=== PATIENT | male | born 1995 | race Caucasian/White ===

== ENCOUNTER 2021-07-02 13:30 | Inpatient (IN) | payer OTHER, SELFPAY ==
[2021-07-02] VITALS (20 sets, daily range): BP systolic 114–154; BP diastolic 57–91; PULSE 77–120; RESP 12–53; TEMP 36.4–37.7; O2SAT 86–98; BMI 52.4; BMI 51.7
--- NOTE | 2021-07-02 14:07 | CT_ITS ---
STUDY: CTA CHEST REASON FOR EXAM: Male, 25 years old. Hypoxic respiratory failure RADIATION DOSAGE (If Supplied By Facility): CTDIvol = ( 13.85 ) mGy, DLP = ( 429.33 ) mGycm TECHNIQUE: The examination was performed with the intravenous administration of IV 100mL Isovue-370. Post-processing of the angiographic images was performed, with multiplanar reformation and 3D reconstruction. Individualized dose optimization techniques were used for this CT. COMPARISON: X-ray earlier today FINDINGS: Normal enhancement of the main pulmonary artery and right and left pulmonary arteries. Normal enhancement of the bilateral peripheral pulmonary arteries. There is no demonstrated pulmonary embolism. Normal thoracic aorta and visualized great vessels. There is no demonstrated aortic dissection. Normal heart and pericardium. Normal mediastinum. Normal hilar regions. Normal visualized trachea and bronchi. The lungs are well expanded. Bilateral patchy groundglass and alveolar densities consistent with bilateral pneumonia. Normal pleura. Normal chest wall structures. Normal osseous structures. Normal visualized upper abdomen. CT/CTA Chest W/WO Contrast IMPRESSION: 1. No CT evidence of pulmonary embolism. 2. Bilateral pneumonia and pneumonitis. Commonly reported imaging features of Covid 19 pneumonia are present. Other processes such as influenza pneumonia and organizing pneumonia as can be seen in drug toxicity and connective tissue disease can cause a similar imaging pattern. Electronically Signed: Kvng Perera MD at 16:58 EST Tel , Service support ,
--- NOTE | 2021-07-02 14:07 | EKG12_ITS ---
Test Reason : SOB, +COVID Blood Pressure : / mmHG Vent. Rate : 104 BPM Atrial Rate : 104 BPM P-R Int : 138 ms QRS Dur : 092 ms QT Int : 306 ms P-R-T Axes : 043 -11 029 degrees QTc Int : 402 ms Sinus tachycardia Otherwise normal ECG Confirmed by MAGGIE NORRIS, JEREMI ([id number]), business editor YFN DE OLIVEIRA ([id number]) on 07/06/2021 10:28:20 AM Referred By: HANNAH Confirmed By:JEREMI SERRANO MD
--- NOTE | 2021-07-02 14:45 | NURSING ---
NO OLD EKGS
[2021-07-02] MEDS: dexAMETHasone 10 MG/ML Vial 6 MG IV (15:03)
[2021-07-02 15:08] LABS: Absolute Lymphocyte Count 0.55 X10^3/uL (0.83-4.51); Absolute Neutrophil Count 7.5 X10^3/uL (2.0-7.7); Basophil# 0.01 X10^3/uL; Basophil% 0.1 % (0-1); Hematocrit 46.2 % (40-54); Hemoglobin 15.6 g/dL (13.0-16.5); Lymphocyte # 0.55 X10^3/ul (0.83-4.51); Lymphocyte % 6.5 % (19-41); Mean Corp Hgb Conc 33.8 g/dL (32-36); Mean Corpuscular Hgb 28.9 pg (27.0-32.0); Mean Corpuscular Volume 85.7 fL (80-94); Mean Platelet Vol. 11.5 fl (6.2-12.0); Monocyte# 0.35 X10^3/uL; Monocyte% 4.2 % (0-10); NRBC Flagged by Analyzer 0 % (0-5); Neutrophil # 7.49 X10^3/uL (2.7-7.7); POSITIVE DIFFERENTIAL YES; Platelet Count 150 K/mm3 (150-450); RBC Distribution Width CV 13.3 % (11.6-14.6); RBC Distribution Width SD 41.6 fl (35.1-43.9); Red Blood Count 5.39 M/mm3 (4.6-6.2); White Blood Count 8.4 K/mm3 (4.4-11.0)
[2021-07-02 15:20] LABS: International Normalized Ratio 1.1; Prothrombin Time (Protime)PT. 13.2 SECONDS (11.7-14.9)
[2021-07-02 15:21] LABS: Partial Thromboplast Time 25.5 Seconds (24.1-36.2)
[2021-07-02 15:27] LABS: Differential Indicated SCAN CRITERIA MET
[2021-07-02 15:34] LABS: Anisocytosis RARE; Platelet Estimate ADEQUATE (ADEQ); Red Cell Morphology N CHROM NORMAL (NORM C&C)
[2021-07-02 15:52] LABS: Lactic Acid 1.4 mmol/L (0.4-1.9)
[2021-07-02 16:04] LABS: ALB/GLOB Ratio 0.6 RATIO (0.9-2.4); AST(SGOT) 19 U/L (15-37); Alanine Aminotransfer ALT/SGPT 45 U/L (16-61); Albumin, Serum 2.8 g/dL (3.2-5.0); Alkaline Phosphatase 67 U/L (45-117); Anion Gap 8 (5-15); BUN 15 mg/dL (7-18); BUN/Creat Ratio 15.5 RATIO (10-20); Calcium,Total 8.7 mg/dL (8.5-10.1); Chloride 104 mmol/L (98-107); Creatinine, Serum 0.97 mg/dL (0.70-1.30); EST Glomerular Filtration Rate 98 mL/min (>60); Est Glom Filt Rate - Afr Amer 119 mL/min (>60); Estimated Creatinine Clearance 110.67 ml/min; Globulin 4.4 g/dL (2.2-4.2); Glucose 158 mg/dL (74-106); Potassium 4.2 mmol/L (3.5-5.1); Protein, Total 7.2 g/dL (6.4-8.2); Sodium Level 137 mmol/L (136-145); Troponin-I HS 4 pg/mL (3.0-78.0)
--- NOTE | 2021-07-02 16:20 | CPS ---
Put pt on BIPAP for transport to CT. when back in his room, he was very anxious, breathing in the low 50's. Pt said the mask made him anxious. R.T. switched him back to Airvo 60l @90% which he tolerates well.
--- NOTE | 2021-07-02 16:30 | RAD_ITS ---
STUDY: X-RAY CHEST REASON FOR EXAM: Male, 25 years old. dyspnea TECHNIQUE: Single AP portable view of the chest. COMPARISON: None. FINDINGS: Alveolar opacities in both lungs consistent with bilateral pneumonia. There is no demonstrated pleural abnormality. Normal size heart. Normal mediastinum and florin. Normal visualized pulmonary arteries. Normal visualized aortic arch and descending thoracic aorta. Normal visualized thoracic spine. Normal visualized ribs, clavicles, and shoulders. There is no demonstrated abnormality of the visualized soft tissue structures of the upper abdomen. RAD/Chest 1 View (Portable) IMPRESSION: Bilateral pneumonia. Electronically Signed: Kvng Perera MD at 16:44 EST Tel , Service support ,
--- NOTE | 2021-07-02 16:48 | ED.VIS.DYS ---
HPI History of Present Illness Chief Complaint: Shortness of Breath Narrative Narrative: 25-year-old male presenting with shortness of breath. He states he has been sick for about a week and a half. He states his dyspnea started yesterday. He has a history of asthma but has not been wheezing. He states that he is having trouble catching his breath. He is not complaining of chest pain. Patient states that he has no other medical problems other than asthma. He had a home COVID test which was positive. He came in today because his oxygen was reading low at home. [facility] Medical History Asthma Allergy/AdvReac Type Severity Reaction Status Date / Time No Known Allergies Allergy Verified 07/02/21 13:34 Family History (Updated 07/02/21 @ 17:[address] Cody Naidu DO) Other Asthma Social History (Updated 07/02/21 @ 17:[address] Cody Naidu DO) Smoking Status: Never smoker alcohol intake: never substance use type: does not use ROS ROS ED Constitutional Constitutional ED: Denies sweats or weight loss Eyes Eyes: Denies blurry vision or diplopia ENT ENT ED: Denies rhinorrhea Cardiovascular Cardiovascular: Reports racing heartbeat; Denies chest pain Respiratory/Chest Respiratory/Chest: Reports cough, dyspnea and dyspnea on exertion Gastrointestinal Gastrointestinal: Denies abdominal pain, nausea or vomiting Genitourinary Genitourinary ED: Denies dysuria or hematuria Musculoskeletal Musculoskeletal: Reports myalgias; Denies arthralgias or neck pain Integumentary Denies Abrasions or rash Neurologic Neurologic: Denies headache(s) or paresthesias EXAM Physical Exam Const Vital Signs: 07/02/21 13:32 07/02/21 14:38 07/02/21 14:53 Temperature 97.6 F L Temperature Source Temporal Pulse Rate 120 H 98 102 H Respiratory Rate 24 H 30 H Respiratory Effort Short of Breath Labored Accessory Muscle Use Respiratory Depth Shallow Respiratory Pattern Tachypnea Blood Pressure 154/91 H Blood Pressure Mean 112 Pulse Ox 87 90 Oxygen Delivery Method Room Air High Flow High Flow Oxygen Flow Rate (L/min) 13 Fraction of Inspired Oxygen (FIO2) 07/02/21 15:10 07/02/21 15:15 07/02/21 15:44 Temperature 99.9 F H Temperature Source Oral Pulse Rate 118 H Respiratory Rate 32 H Respiratory Effort Respiratory Depth Respiratory Pattern Tachypnea Blood Pressure Blood Pressure Mean Pulse Ox 86 94 Oxygen Delivery Method High Flow Oxygen Flow Rate (L/min) 15 Fraction of Inspired Oxygen (FIO2) 92 07/02/21 16:19 07/02/21 16:20 07/02/21 16:57 Temperature Temperature Source Pulse Rate 110 H 116 H 118 H Respiratory Rate 25 H 53 H 44 H Respiratory Effort Respiratory Depth Respiratory Pattern Tachypnea Tachypnea Blood Pressure 138/82 H Blood Pressure Mean 100 Pulse Ox 91 98 92 Oxygen Delivery Method Bi-pap Oxygen Flow Rate (L/min) Fraction of Inspired Oxygen (FIO2) 100 90 Positive well nourished Constitutional Narrative: Tachypneic and tachycardic. General Appearance ED: Negative for pallor HEENT Reports dry mucous membranes atraumatic Mouth ED: Yes dry mucous membranes Mouth: dry mucous membranes Eyes PERRL and EOMs intact bilaterally Resp Resp Narrative: Tachypneic Auscultation: Negative for rales, rhonchi or wheezes Cardio regular rhythm Rate: tachycardic Extremity normal to inspection General Extremety ED: Negative for edema or tenderness General Extremity: Negative for edema Neuro oriented x3 and CN's II-XII intact bilaterally Sensorium / Orientation: alert Psych mental status grossly normal Skin General Skin Exam: Negative for jaundice or pallor MDM MDM MDM Narrative Medical decision making narrative: Patient presenting tachypneic and tachycardic. He has a positive COVID test. Based on patient's vital sepsis work-up was initiated. He had EKG interpreted by myself as sinus tachycardia at a rate of 104 bpm without sign of ischemic change. Chest x-ray shows bilateral infiltrates on my interpretation and the radiologist does agree. High-sensitivity troponin is 4. CBC shows his white blood cell count is 8.4. Hemoglobin normal 18.6. Platelets 150. Patient is noted to be lymphopenic. Coagulation studies are normal. Lactic acid 1.4. LFTs are normal. Patient initially was on 4 L nasal cannula and was on air Vo he had trialed on BiPAP however he did poorly on this and became more tachypneic. He switched back to Airvo and appears stable. I did obtain a CTA of the chest which does not show any pulmonary embolism however there is diffuse pneumonitis bilaterally. Patient was given dexamethasone. If also gave him some IV fluids. Patient was discussed with the hospitalist for admission. Impression: 1. COVID-19 pneumonitis 2. Hypoxic respiratory failure Lab Data Attestation: I reviewed the patient's lab results. Labs: Laboratory Results - last 24 hr 07/02/21 07/02/21 07/02/21 14:29 14:29 14:29 WBC 8.4 RBC 5.39 Hgb 15.6 Hct 46.2 MCV 85.7 MCH 28.9 MCHC 33.8 RDW Std Deviation 41.6 RDW Coeff of Ying 13.3 Plt Count 150 MPV 11.5 Immature Gran % (Auto) 0.200 Neut % (Auto) 89.0 H Lymph % (Auto) 6.5 L Esmeralda % (Auto) 4.2 Eos % (Auto) 0.0 Baso % (Auto) 0.1 Absolute Neuts (auto) 7.5 Absolute Lymphs (auto) 0.55 L Nucleated RBC % 0 Differential Comment SEE COMMENT Platelet Estimate ADEQUATE RBC Morphology N CHROM Anisocytosis RARE PT 13.2 INR 1.1 APTT 25.5 Sodium Cancelled Potassium Cancelled Chloride Cancelled Carbon Dioxide Cancelled Anion Gap Cancelled BUN Cancelled Creatinine Cancelled Estim Creat Clear Calc Cancelled Est GFR (MDRD) Af Amer Cancelled Est GFR (MDRD) Non-Af Cancelled BUN/Creatinine Ratio Cancelled Glucose Cancelled Lactic Acid Calcium Cancelled Total Bilirubin Cancelled AST Cancelled ALT Cancelled Alkaline Phosphatase Cancelled Troponin I High Sens Cancelled Total Protein Cancelled Albumin Cancelled Globulin Cancelled Albumin/Globulin Ratio Cancelled 07/02/21 07/02/21 14:29 15:30 WBC RBC Hgb Hct MCV MCH MCHC RDW Std Deviation RDW Coeff of Ying Plt Count MPV Immature Gran % (Auto) Neut % (Auto) Lymph % (Auto) Esmeralda % (Auto) Eos % (Auto) Baso % (Auto) Absolute Neuts (auto) Absolute Lymphs (auto) Nucleated RBC % Differential Comment Platelet Estimate RBC Morphology Anisocytosis PT INR APTT Sodium 137 Potassium 4.2 Chloride 104 Carbon Dioxide 25.0 Anion Gap 8 BUN 15 Creatinine 0.97 Estim Creat Clear Calc 110.67 Est GFR (MDRD) Af Amer 119 Est GFR (MDRD) Non-Af 98 BUN/Creatinine Ratio 15.5 Glucose 158 H Lactic Acid 1.4 Calcium 8.7 Total Bilirubin 0.50 AST 19 ALT 45 Alkaline Phosphatase 67 Troponin I High Sens 4 Total Protein 7.2 Albumin 2.8 L Globulin 4.4 H Albumin/Globulin Ratio 0.6 L Radiography Diagnostic Testing: Clinical Impression(s) from Imaging Studies Chest CTA 07/02/21 14:07 IMPRESSION: 1. No CT evidence of pulmonary embolism. 2. Bilateral pneumonia and pneumonitis. Commonly reported imaging features of Covid 19 pneumonia are present. Other processes such as influenza pneumonia and organizing pneumonia as can be seen in drug toxicity and connective tissue disease can cause a similar imaging pattern. Electronically Signed: Kvng Perera MD at 16:58 EST Tel , Service support , Chest X-Ray 07/02/21 16:30 IMPRESSION: Bilateral pneumonia. Electronically Signed: Kvng Perera MD at 16:44 EST Tel , Service support , Discharge Plan Triage Chief Complaint: Shortness of Breath ED Provider: Pablo Madera Dx/Rx/DC Orders Primary Care Provider: Care Physician,No Primary
--- NOTE | 2021-07-02 17:19 | NURSING ---
SAMRA NOEL 17 PNEUMONITIS, HYPOXIC RESP FAILURE
--- NOTE | 2021-07-02 17:24 | HP.PCM.HOS_ITS ---
HPI - General General Chief Complaint: shortness of breath HPI Narrative MAHSA PARSON, is a 25 M who presents with illness that began on June 23. Is gradually gotten more short of breath at this time. He presented to the emergency room at 87%. Was on high flow and was still hypoxic and put on BiPAP which she did not tolerate and then put on air Vo where his pulse ox has been around 90%. Patient was positive for COVID-19. He is unvaccinated. He has coughing with some productive yellow phlegm. [facility] Medical History Asthma Allergy/AdvReac Type Severity Reaction Status Date / Time No Known Allergies Allergy Verified 07/02/21 13:34 Family History (Updated 07/02/21 @ 17:[address] Cody Naidu DO) Other Asthma Social History (Updated 07/02/21 @ 17:[address] Cody Naidu DO) Smoking Status: Never smoker alcohol intake: never substance use type: does not use ROS ROS Narrative All review of systems were negative except as mentioned above in the history of present illness and the other review of systems. Vital Signs Vital Signs Vital Signs: 07/02/21 13:32 07/02/21 14:38 07/02/21 14:53 Temperature 36.4 C L Temperature Source Temporal Pulse Rate 120 H 98 102 H Respiratory Rate 24 H 30 H Respiratory Effort Short of Breath Labored Accessory Muscle Use Respiratory Depth Shallow Respiratory Pattern Tachypnea Blood Pressure 154/91 H Blood Pressure Mean 112 Pulse Ox 87 90 Oxygen Delivery Method Room Air High Flow High Flow Oxygen Flow Rate (L/min) 13 Fraction of Inspired Oxygen (FIO2) 07/02/21 15:10 07/02/21 15:15 07/02/21 15:44 Temperature 37.7 C H Temperature Source Oral Pulse Rate 118 H Respiratory Rate 32 H Respiratory Effort Respiratory Depth Respiratory Pattern Tachypnea Blood Pressure Blood Pressure Mean Pulse Ox 86 94 Oxygen Delivery Method High Flow Oxygen Flow Rate (L/min) 15 Fraction of Inspired Oxygen (FIO2) 92 07/02/21 16:19 07/02/21 16:20 07/02/21 16:57 Temperature Temperature Source Pulse Rate 110 H 118 H Respiratory Rate 25 H 44 H Respiratory Effort Respiratory Depth Respiratory Pattern Tachypnea Blood Pressure 138/82 H Blood Pressure Mean 100 Pulse Ox 91 92 Oxygen Delivery Method Bi-pap Oxygen Flow Rate (L/min) Fraction of Inspired Oxygen (FIO2) 100 90 Weight Weight: 156.489 kg Body Mass Index (BMI) 52.4 Physical Exam Const alert Constitutional Narrative: Awake on air Vo. No respiratory distress. No conversational dyspnea. General Appearance: cooperative HEENT normocephalic and head/scalp atraumatic Eyes Eyes Narrative: No icterus Neck no lymphadenopathy Neck Narrative: No thyromegaly Resp normal respiratory effort, no retractions, no use of accessory muscles and clear to auscultation bilaterally Cardio regular rate, regular rhythm, S1 normal heart sound and S2 normal heart sound GI normal to inspection, nondistended, normoactive bowel sounds, soft to palpation, non-tender and non-distended Extremity normal to inspection and no clubbing, cyanosis or edema Skin no rashes or lesions noted Neuro Sensorium / Orientation: awake and alert Psych Mood & Affect: anxious Results Lab / Micro Data Attestation: I reviewed the patient's lab results. Result Diagrams: 07/02/21 14:29 07/02/21 15:30 Labs: Laboratory Results - last 24 hr 07/02/21 14:29: WBC 8.4, RBC 5.39, Hgb 15.6, Hct 46.2, MCV 85.7, MCH 28.9, MCHC 33.8, RDW Std Deviation 41.6, RDW Coeff of Ying 13.3, Plt Count 150, MPV 11.5, Immature Gran % (Auto) 0.200, Neut % (Auto) 89.0 H, Lymph % (Auto) 6.5 L, Castro % (Auto) 4.2, Eos % (Auto) 0.0, Baso % (Auto) 0.1, Absolute Neuts (auto) 7.5, Absolute Lymphs (auto) 0.55 L, Nucleated RBC % 0, Differential Comment SEE COMMENT, Platelet Estimate ADEQUATE, RBC Morphology N CHROM, Anisocytosis RARE 07/02/21 14:29: PT 13.2, INR 1.1, APTT 25.5 07/02/21 14:29: Sodium Cancelled, Potassium Cancelled, Chloride Cancelled, Carbon Dioxide Cancelled, Anion Gap Cancelled, BUN Cancelled, Creatinine Cancelled, Estim Creat Clear Calc Cancelled, Est GFR (MDRD) Af Amer Cancelled, Est GFR (MDRD) Non-Af Cancelled, BUN/Creatinine Ratio Cancelled, Glucose Cancelled, Calcium Cancelled, Total Bilirubin Cancelled, AST Cancelled, ALT Cancelled, Alkaline Phosphatase Cancelled, Troponin I High Sens Cancelled, Total Protein Cancelled, Albumin Cancelled, Globulin Cancelled, Albumin/Globulin Ratio Cancelled 07/02/21 14:29: Lactic Acid 1.4 07/02/21 15:30: Sodium 137, Potassium 4.2, Chloride 104, Carbon Dioxide 25.0, Anion Gap 8, BUN 15, Creatinine 0.97, Estim Creat Clear Calc 110.67, Est GFR (MDRD) Af Amer 119, Est GFR (MDRD) Non-Af 98, BUN/Creatinine Ratio 15.5, Glucose 158 H, Calcium 8.7, Total Bilirubin 0.50, AST 19, ALT 45, Alkaline Phosphatase 67, Troponin I High Sens 4, Total Protein 7.2, Albumin 2.8 L, Globulin 4.4 H, Albumin/Globulin Ratio 0.6 L Micro: Microbiology 07/02/21 15:05 Nasal Secretion SARS-CoV-2 Antigen (Rapid) - Final SARS-CoV-2 (COVID 19) Radiology Impression Chest CTA 07/02/21 14:07 IMPRESSION: 1. No CT evidence of pulmonary embolism. 2. Bilateral pneumonia and pneumonitis. Commonly reported imaging features of Covid 19 pneumonia are present. Other processes such as influenza pneumonia and organizing pneumonia as can be seen in drug toxicity and connective tissue disease can cause a similar imaging pattern. Electronically Signed: Kvng Perera MD at 16:58 EST Tel , Service support , Chest X-Ray 07/02/21 16:30 IMPRESSION: Bilateral pneumonia. Electronically Signed: Kvng Perera MD at 16:44 EST Tel , Service support , Assessment & Plan Assessment/Plan (1) Acute respiratory failure with hypoxia: (2) COVID-19: (3) Morbid obesity: PLAN: 1. Acute hypoxic respiratory failure Secondary to COVID-19 Clinically not in CHF We will check for bacterial pneumonia Patient on air Vo but anticipate patient will require BiPAP Patient attempted BiPAP with did not tolerate it. I expressed with patient directly that BiPAP would be the next step before he is intubated if it does come to that. He seemed agreeable to attempting again if it becomes necessary. Pulmonary toilet Consult pulmonary as I very concerned that he may wind up being placed on a ventilator in the coming days. Explained to them both that it is unclear that his course will improve or get worse. Informed him that we will evaluate and see how he does day-to-day. I did express to them both that I am very concerned that he could get worse despite the treatment. Strongly encourage patient take active involvement in regards to his care in regards to using senna spirometer chest physiotherapy and prone positioning. 2. Acute COVID-19 pneumonia Onset was June 23 He is unvaccinated Dexamethasone and remdesivir Consult infectious disease to see if he would be a candidate for baricitinib 3. Hyperglycemia Unclear if patient has underlying diabetes but I do expect his blood sugars to be elevated with the steroids Check an A1c 4. Morbid obesity BMI 52.5 Explained to the patient and his father that is a risk factor for severe COVID- 19 and respiratory failure Patient will need further outpatient follow-up 6. VTE prophylaxis with enoxaparin 7. CODE STATUS: Addressed with the patient. He is full code. He wishes to be intubated if becomes life or . 8. Prognosis: Guarded Charges/Coding Visit Charges Inpatient E&M: 10242 Init Hosp L3
--- NOTE | 2021-07-02 19:22 | PCS.PANDOC ---
PANDEMIC DOCUMENTATION INITIATED: Date: 07/02/2021 Time: 1921
[2021-07-02] MEDS: 0.9% Saline Lock 10 ML Syringe IV (20:53)
[2021-07-02] MEDS: Enoxaparin 40 MG/0.4 ML Syringe SC (20:53)
[2021-07-02] MEDS: Acetaminophen 325 MG Tablet 650 MG PO (20:54)
[2021-07-02 23:43] LABS: Bacteria 0 SEEN /hpf (None Seen); Mucous, Urine 0 SEEN /hpf (<or=2+); Red Blood Cells-Urine 0 SEEN /hpf (0-5); Squamous Epithelial Cells - UA 0 SEEN /hpf (0-5); White Blood Cells 0 SEEN /hpf (0-5)
[2021-07-02 23:45] LABS: Glucose, Dipstick Normal (Normal); Ketone-Dipstick 15 mg/dl (Negative); Leukocyte Esterase-Dipstick Negative /ul (Negative); Nitrite-Dipstick Negative (Negative); Occult Blood-Urine Negative /ul (Negative); Protein-Dipstick 30 mg/dl (Negative); Specific Gravity, Urine 1.015 (1.002-1.030); Urine Bilirubin Dipstick Negative (Negative); Urine Urobilinogen Normal (Normal)
[2021-07-03] VITALS (15 sets, daily range): BP systolic 112–144; BP diastolic 58–74; PULSE 60–93; RESP 14–45; TEMP 36.8–37.5; O2SAT 90–97
[2021-07-03] LABS: Color, Urine Yellow (Yellow); Urine Clarity Clear (Clear)
[2021-07-03 02:21] LABS: Bedside Glucose 177 mg/dL (70-110)
[2021-07-03] MEDS: Ondansetron 4 MG/2 ML Vial IV (03:06)
[2021-07-03] MEDS: 0.9% Saline Lock 10 ML Syringe IV ×2 (03:07→08:35)
[2021-07-03] MEDS: Acetaminophen 325 MG Tablet 650 MG PO ×2 (06:37→14:20)
[2021-07-03 07:01] LABS: Bedside Glucose 143 mg/dL (70-110)
[2021-07-03 07:04] LABS: Hematocrit 45.8 % (40-54); Hemoglobin 15.4 g/dL (13.0-16.5); Mean Corp Hgb Conc 33.6 g/dL (32-36); Mean Corpuscular Hgb 28.8 pg (27.0-32.0); Mean Corpuscular Volume 85.6 fL (80-94); Mean Platelet Vol. 10.3 fl (6.2-12.0); Platelet Count 158 K/mm3 (150-450); RBC Distribution Width CV 13.1 % (11.6-14.6); RBC Distribution Width SD 41.2 fl (35.1-43.9); Red Blood Count 5.35 M/mm3 (4.6-6.2); White Blood Count 8.1 K/mm3 (4.4-11.0)
[2021-07-03 07:46] LABS: ALB/GLOB Ratio 0.6 RATIO (0.9-2.4); AST(SGOT) 18 U/L (15-37); Alanine Aminotransfer ALT/SGPT 40 U/L (16-61); Albumin, Serum 2.7 g/dL (3.2-5.0); Alkaline Phosphatase 63 U/L (45-117); Anion Gap 7 (5-15); BUN 17 mg/dL (7-18); BUN/Creat Ratio 21.3 RATIO (10-20); Calcium,Total 8.9 mg/dL (8.5-10.1); Chloride 107 mmol/L (98-107); EST Glomerular Filtration Rate 123 mL/min (>60); Est Glom Filt Rate - Afr Amer 149 mL/min (>60); Estimated Creatinine Clearance 134.19 ml/min; Globulin 4.5 g/dL (2.2-4.2); Glucose 130 mg/dL (74-106); Potassium 3.9 mmol/L (3.5-5.1); Protein, Total 7.2 g/dL (6.4-8.2); Sodium Level 138 mmol/L (136-145)
[2021-07-03 07:59] LABS: Hemoglobin A1c 5.8 % (3.8-5.6)
[2021-07-03] MEDS: Enoxaparin 40 MG/0.4 ML Syringe SC ×2 (08:35→22:52)
[2021-07-03] MEDS: dexAMETHasone 10 MG/ML Vial 6 MG IV (08:36)
[2021-07-03] MEDS: Insulin Lispro 100 UNIT/ML INSULN.PEN SC ×2 (11:17→16:02)
--- NOTE | 2021-07-03 11:32 | CON.PCM.CC_ITS ---
Assessment & Plan Assessment/Plan (1) Acute respiratory failure with hypoxia: (2) COVID-19: (3) Morbid obesity: PLAN: RECOMMENDATIONS: 1. Continue Airvo during the day, but must use BiPAP with sleep 2. Agree with Decadron (07/12/2021), Remdesivir (07/06/2021). 3. Patient likely good candidate for baricitinib. Await ID 4. Monitor for complications of therapy with daily labs 5. Encourage prone position, Acapella and incentive spirometer as tolerated 6. Initiate bronchodilators as needed IMPRESSIONS: 1. Acute hypoxic respiratory failure secondary to COVID-19 Patient is appropriately on Decadron and Remdesivir therapy. Patient is likely a good candidate for baricitinib given elevated CRP, but infectious disease has been consulted, so will defer to them. Patient does have a history of asthma. We will add bronchodilators. Patient is already on steroids. Wean supplemental oxygen as tolerated. Okay to use Airvo during the day if able to maintain saturations, but BiPAP would be best for sleep as patient does have a high probability of obstructive sleep apnea and will likely not tolerate hypoventilation at this time. Patient does not have an elevated bicarbonate to suggest CO2 retention at baseline. Patient appears to be doing okay at this time, but cannot exclude progression to intubation 2. Morbid obesity/asthma/probable MELONY Complicates care, management, recovery and prognosis. Will initiate bronchodilators. Patient should be on BiPAP with sleep to minimize atelectasis and derecruitment. Confirmed with the patient that he is a full code. HPI Consult Data Date of Consult: 07/03/21 HPI Narrative HPI Narrative: MAHSA PARSON is a 25 M, with past medical history listed below, who presents to [facility] on 07/02/2021 secondary to progressive shortness of breath. Patient states that he started to have body aches, headache and sore throat approximately 10 days ago. Patient has had progressive dyspnea to the point that he is he requiring albuterol 3 times a day. Patient denied any chest pain, nausea or vomiting. Patient had taken a home COVID test which was positive and came to the ER on the day of presentation secondary to low saturations on a pulse ox at home. In the ER, patient was afebrile, but tachycardic at 120 bpm, hypertensive and saturating 87% on room air. The patient was placed on progressive amounts of supplemental oxygen until he required BiPAP therapy. Patient did have tachypnea as high as 53 breaths/min. Laboratory work-up showed a relatively normal CBC, coagulation studies and chemistries. Lactate was 1.4. Liver enzymes were within normal limits. Chest x-ray showed bilateral infiltrates and a CTA of the chest showed no acute PE, but significant groundglass opacities bilaterally. The patient was placed on Airvo, given Decadron and admitted to the floor for further evaluation. Since being admitted, patient feels subjectively slightly improved compared to previous. Patient is reporting body aches and shortness of breath with minimal exertion. Patient has not had any epistaxis, nausea or vomiting. Patient believes that his conversational ability is a little bit better than when he came in. Patient reports a long history of asthma. Patient has not seen a special forces engineer sergeant previously, but does use albuterol as needed. Patient estimates that he needs prednisone intermittently to help with bronchitis. Patient has never been on a maintenance inhaler. Patient is not aware of ever having a pulmonary function test. 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 Patient has never been a smoker, drinker or used other illicit drugs. Patient states he was not vaccinated because he thought that he was too young to have any serious complications. The patient denies a history of obstructive sleep apnea, but is never been tested. Review of systems otherwise negative from a constitutional, HEENT, respiratory, cardiovascular, GI, genitourinary, musculoskeletal, skin, neurologic, psychiatric and hematologic system unless stated above. [facility] Medical History Asthma Obesity Home Medications NK 07/02/21 [History Last Taken Unknown] Allergy/AdvReac Type Severity Reaction Status Date / Time cat dander AdvReac Swelling Verified 07/02/21 19:42 Family History Other Asthma Social History Smoking Status: Never smoker alcohol intake: never substance use type: does not use ROS ROS Narrative See HPI Physical Exam Const alert and oriented x3 Constitutional Narrative: Awake on Airvo. No respiratory distress. Mild conversational dyspnea. General Appearance: cooperative Nutritional Appearance: morbidly obese HEENT normocephalic and head/scalp atraumatic Eyes Eyes Narrative: No icterus Neck no lymphadenopathy Neck Narrative: No thyromegaly. [place] hump noted. Chest inspection of chest normal Chest: symmetrical chest wall rise; Negative for crepitus Resp no retractions and no use of accessory muscles Effort and Inspection: tachypneic Auscultation: diminished lung sounds; Negative for rales, rhonchi or wheezes Cardio regular rate, regular rhythm, S1 normal heart sound and S2 normal heart sound GI normal to inspection, nondistended, normoactive bowel sounds, soft to palpation, non-tender and non-distended Extremity normal to inspection and no clubbing, cyanosis or edema Skin no rashes or lesions noted Neuro Sensorium / Orientation: awake and alert Psych Mood & Affect: anxious Lab / Micro Data Result Diagrams: 07/03/21 06:20 07/03/21 06:20 Labs: Laboratory Results - last 24 hr 07/02/21 14:29: WBC 8.4, RBC 5.39, Hgb 15.6, Hct 46.2, MCV 85.7, MCH 28.9, MCHC 33.8, RDW Std Deviation 41.6, RDW Coeff of Ying 13.3, Plt Count 150, MPV 11.5, Immature Gran % (Auto) 0.200, Neut % (Auto) 89.0 H, Lymph % (Auto) 6.5 L, [place] % (Auto) 4.2, Eos % (Auto) 0.0, Baso % (Auto) 0.1, Absolute Neuts (auto) 7.5, Abs olute Lymphs (auto) 0.55 L, Nucleated RBC % 0, Differential Comment SEE COMMENT, Platelet Estimate ADEQUATE, RBC Morphology N CHROM, Anisocytosis RARE 07/02/21 14:29: PT 13.2, INR 1.1, APTT 25.5 07/02/21 14:29: Sodium Cancelled, Potassium Cancelled, Chloride Cancelled, Carbon Dioxide Cancelled, Anion Gap Cancelled, BUN Cancelled, Creatinine Cancelled, Estim Creat Clear Calc Cancelled, Est GFR (MDRD) Af Amer Cancelled, Est GFR (MDRD) Non-Af Cancelled, BUN/Creatinine Ratio Cancelled, Glucose Cancelled, Calcium Cancelled, Total Bilirubin Cancelled, AST Cancelled, ALT Cancelled, Alkaline Phosphatase Cancelled, Troponin I High Sens Cancelled, Total Protein Cancelled, Albumin Cancelled, Globulin Cancelled, Albumin/Globulin Ratio Cancelled 07/02/21 14:29: Lactic Acid 1.4 07/02/21 15:30: Sodium 137, Potassium 4.2, Chloride 104, Carbon Dioxide 25.0, Anion Gap 8, BUN 15, Creatinine 0.97, Estim Creat Clear Calc 110.67, Est GFR (MDRD) Af Amer 119, Est GFR (MDRD) Non-Af 98, BUN/Creatinine Ratio 15.5, Glucose 158 H, Calcium 8.7, Total Bilirubin 0.50, AST 19, ALT 45, Alkaline Phosphatase 67, Troponin I High Sens 4, Total Protein 7.2, Albumin 2.8 L, Globulin 4.4 H, Albumin/Globulin Ratio 0.6 L 07/02/21 20:50: POC Glucose 177 H 07/02/21 23:33: Urine Color Yellow, Urine Clarity Clear, Urine pH 5.0, Ur Specific [place] 1.015, Urine Protein 30 H, Urine Glucose (UA) Normal, Urine Ketones 15 H, Urine Occult Blood Negative, Urine Nitrite Negative, Urine Bilirubin Negative, Urine Urobilinogen Normal, Ur Leukocyte Esterase Negative, Urine RBC 0 SEEN, Urine WBC 0 SEEN, Ur Squamous Epith Cells 0 SEEN, Urine Bacteria 0 SEEN, Urine Mucus 0 SEEN 07/03/21 06:20: WBC 8.1, RBC 5.35, Hgb 15.4, Hct 45.8, MCV 85.6, MCH 28.8, MCHC 33.6, RDW Std Deviation 41.2, RDW Coeff of Ying 13.1, Plt Count 158, MPV 10.3 07/03/21 06:20: Sodium 138, Potassium 3.9, Chloride 107, Carbon Dioxide 24.0, Anion Gap 7, BUN 17, Creatinine 0.80, Estim Creat Clear Calc 134.19, Est GFR (MDRD) Af Amer 149, Est GFR (MDRD) Non-Af 123, BUN/Creatinine Ratio 21.3 H, Glucose 130 H, Calcium 8.9, Total Bilirubin 0.50, AST 18, ALT 40, Alkaline Phosphatase 63, Total Protein 7.2, Albumin 2.7 L, Globulin 4.5 H, Albumin/Globulin Ratio 0.6 L 07/03/21 06:20: Hemoglobin A1c 5.8 H 07/03/21 06:20: C-React Prot Ext Range 118.00 H 07/03/21 06:38: POC Glucose 143 H Micro: Microbiology 07/02/21 23:33 Urine, Clean Catch Legionella Antigen - Final 07/02/21 23:33 Urine, Clean Catch Streptococcus pneumoniae Antigen (M - Final 07/02/21 15:05 Nasal Secretion SARS-CoV-2 Antigen (Rapid) - Final SARS-CoV-2 (COVID 19) Radiology Impression Chest CTA 07/02/21 14:07 IMPRESSION: 1. No CT evidence of pulmonary embolism. 2. Bilateral pneumonia and pneumonitis. Commonly reported imaging features of Covid 19 pneumonia are present. Other processes such as influenza pneumonia and organizing pneumonia as can be seen in drug toxicity and connective tissue disease can cause a similar imaging pattern. Electronically Signed: Kvng Perera MD at 16:58 EST Tel , Service support , Chest X-Ray 07/02/21 16:30 IMPRESSION: Bilateral pneumonia. Electronically Signed: Kvng Perera MD at 16:44 EST Tel , Service support , Charges/Coding Visit Charges Inpatient E&M: 41558 Init Hosp L3
[2021-07-03 11:35] LABS: Bedside Glucose 155 mg/dL (70-110)
--- NOTE | 2021-07-03 13:01 | PCM.CONS.GEN ---
Assessment & Plan Assessment/Plan (1) COVID-19: PLAN: Covid since 06/23, isolate until 07/13/21. Unvaccinated, recommend vaccine once out of iso. On dex, remdesivir, bid lovenox 40mg bid. CT neg for PE. On airvo. Reviewed EUA and risks/benefits with him, we agree to start baricitinib. Will follow, thank you (2) Acute respiratory failure with hypoxia: (3) Morbid obesity: HPI Consult Data Date of Consult: 07/03/21 HPI Narrative HPI Narrative: MAHSA PARSON, is a 25 M who presented with sx since 06/23, c/o fever, chills, cough, diarrhea, progressive dyspnea. H/o asthma. Lives with roommates, none are symptomatic. Came to ED, admitted on dex, remdesivir, now on airvo. Unvaccinated. Full ROS performed and neg except as noted above. [facility] Medical History Asthma Obesity Home Medications NK 07/02/21 [History Last Taken Unknown] Allergy/AdvReac Type Severity Reaction Status Date / Time cat dander AdvReac Swelling Verified 07/02/21 19:42 Family History Other Asthma Social History Smoking Status: Never smoker alcohol intake: never substance use type: does not use Physical Exam Const alert, oriented x3 and no apparent distress General Appearance: cooperative Exam Limitations: no limitations HEENT normocephalic and head/scalp atraumatic Eyes PERRL and EOMs intact bilaterally Neck supple and No nodes Resp Auscultation: diminished lung sounds Cardio regular rate and regular rhythm GI normal to inspection, nondistended, normoactive bowel sounds Extremity no clubbing, cyanosis or edema Skin no rashes or lesions noted Neuro CN's II-XII intact bilaterally Medical Records Data Medical Nutrition Assessment Dietitian: Malnutrition Criteria Met Start: 07/03/21 11:47 Freq: Status: Active Protocol: Document 07/03/21 11:47 SLA (Rec: 07/03/21 11:48 [facility] [id number]) Nutrition Malnutrition Evidence of Malnutrition Exists Yes Malnutrition (severe): Acute Illness/Injury Evidenced By Suboptimal Energy Intake ( Severe),Weight Loss (Severe) Clinical Problem Acute Disease or Injury Related Malnutrition Etiology related to acute illness and inability to meet est nutritional needs via oral diet Signs/Symptoms as evidenced 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 10 days Status Active Problem Recommendation Dietitian Recommendations/Changes Will change diet to liberal Regular d/t signs/symptoms of malnutrition Will provide 8 oz ensure clear w/ meals for increased nutrition if consumed Will adjust diet / ONS at time of follow up pending po intake/gluc levels/weight changes Lab / Micro Data Result Diagrams: 07/03/21 06:20 07/03/21 06:20 Labs: Laboratory Results - last 24 hr 07/02/21 14:29: WBC 8.4, RBC 5.39, Hgb 15.6, Hct 46.2, MCV 85.7, MCH 28.9, MCHC 33.8, RDW Std Deviation 41.6, RDW Coeff of Ying 13.3, Plt Count 150, MPV 11.5, Immature Gran % (Auto) 0.200, Neut % (Auto) 89.0 H, Lymph % (Auto) 6.5 L, [place] % (Auto) 4.2, Eos % (Auto) 0.0, Baso % (Auto) 0.1, Absolute Neuts (auto) 7.5, Absolute Lymphs (auto) 0.55 L, Nucleated RBC % 0, Differential Comment SEE COMMENT, Platelet Estimate ADEQUATE, RBC Morphology N CHROM, Anisocytosis RARE 07/02/21 14:29: PT 13.2, INR 1.1, APTT 25.5 07/02/21 14:29: Sodium Cancelled, Potassium Cancelled, Chloride Cancelled, Carbon Dioxide Cancelled, Anion Gap Cancelled, BUN Cancelled, Creatinine Cancelled, Estim Creat Clear Calc Cancelled, Est GFR (MDRD) Af Amer Cancelled, Est GFR (MDRD) Non-Af Cancelled, BUN/Creatinine Ratio Cancelled, Glucose Cancelled, Calcium Cancelled, Total Bilirubin Cancelled, AST Cancelled, ALT Cancelled, Alkaline Phosphatase Cancelled, Troponin I High Sens Cancelled, Total Protein Cancelled, Albumin Cancelled, Globulin Cancelled, Albumin/Globulin Ratio Cancelled 07/02/21 14:29: Lactic Acid 1.4 07/02/21 15:30: Sodium 137, Potassium 4.2, Chloride 104, Carbon Dioxide 25.0, Anion Gap 8, BUN 15, Creatinine 0.97, Estim Creat Clear Calc 110.67, Est GFR (MDRD) Af Amer 119, Est GFR (MDRD) Non-Af 98, BUN/Creatinine Ratio 15.5, Glucose 158 H, Calcium 8.7, Total Bilirubin 0.50, AST 19, ALT 45, Alkaline Phosphatase 67, Troponin I High Sens 4, Total Protein 7.2, Albumin 2.8 L, Globulin 4.4 H, Albumin/Globulin Ratio 0.6 L 07/02/21 20:50: POC Glucose 177 H 07/02/21 23:33: Urine Color Yellow, Urine Clarity Clear, Urine pH 5.0, Ur Specific [place] 1.015, Urine Protein 30 H, Urine Glucose (UA) Normal, Urine Ketones 15 H, Urine Occult Blood Negative, Urine Nitrite Negative, Urine Bilirubin Negative, Urine Urobilinogen Normal, Ur Leukocyte Esterase Negative, Urine RBC 0 SEEN, Urine WBC 0 SEEN, Ur Squamous Epith Cells 0 SEEN, Urine Bacteria 0 SEEN, Urine Mucus 0 SEEN 07/03/21 06:20: WBC 8.1, RBC 5.35, Hgb 15.4, Hct 45.8, MCV 85.6, MCH 28.8, MCHC 33.6, RDW Std Deviation 41.2, RDW Coeff of Ying 13.1, Plt Count 158, MPV 10.3 07/03/21 06:20: Sodium 138, Potassium 3.9, Chloride 107, Carbon Dioxide 24.0, Anion Gap 7, BUN 17, Creatinine 0.80, Estim Creat Clear Calc 134.19, Est GFR (MDRD) Af Amer 149, Est GFR (MDRD) Non-Af 123, BUN/Creatinine Ratio 21.3 H, Glucose 130 H, Calcium 8.9, Total Bilirubin 0.50, AST 18, ALT 40, Alkaline Phosphatase 63, Total Protein 7.2, Albumin 2.7 L, Globulin 4.5 H, Albumin/Globulin Ratio 0.6 L 07/03/21 06:20: Hemoglobin A1c 5.8 H 07/03/21 06:20: C-React Prot Ext Range 118.00 H 07/03/21 06:38: POC Glucose 143 H 07/03/21 11:06: POC Glucose 155 H Micro: Microbiology 07/02/21 23:33 Urine, Clean Catch Urine Culture - Preliminary Culture exhibits no growth. 07/02/21 23:33 Urine, Clean Catch Legionella Antigen - Final 07/02/21 23:33 Urine, Clean Catch Streptococcus pneumoniae Antigen (M - Final 07/02/21 15:05 Nasal Secretion SARS-CoV-2 Antigen (Rapid) - Final SARS-CoV-2 (COVID 19) Radiology Impression Chest CTA 07/02/21 14:07 IMPRESSION: 1. No CT evidence of pulmonary embolism. 2. Bilateral pneumonia and pneumonitis. Commonly reported imaging features of Covid 19 pneumonia are present. Other processes such as influenza pneumonia and organizing pneumonia as can be seen in drug toxicity and connective tissue disease can cause a similar imaging pattern. Electronically Signed: Kvng Perera MD at 16:58 EST Tel , Service support , Chest X-Ray 07/02/21 16:30 IMPRESSION: Bilateral pneumonia. Electronically Signed: Kvng Perera MD at 16:44 EST Tel , Service support ,
--- NOTE | 2021-07-03 14:20 | CASEMGMT ---
DEVON CANO Assessment: Face to Face with pt for initial transition planning/care coordination assessment. RN RACHAEL introduced self and role at [facility], pt voices understanding and consents to assessment. Pt is A/O x4 and answers all questions appropriately at this time. Pt lying in bed on airvo in no distress. Nurse at bedside. Care providers, pharmacy, and demographics verified/updated. Admitting Dx: COVID 19, resp failure PCP: Pt states he has a PCP in [place] but is unsure of the name. Specialists: Pt denies. Preferred Pharmacy: [facility] Insurance: MMO Prescription Benefit: yes LW/HPOA: Pt denies having a LW/DPOA and denies need for info regarding AD. LNOK: Jer Rivera Living Arrangements: Pt lives with father in a ground level apt with no steps to enter. Pt reports he is I in ADL's and denies concerns at home. Transportation: Pt drives self and denies concerns with transportation. DME/HHC/SNF: Pt has a pulse ox at home, denies previous HHC or SNF stays. Pt has tested positive for COVID at [facility]. Pt father is not positive. Pt is able to quarantine from him using separate bedrooms and bathrooms. Discussed local DME companies verbally with patient should he need home O2, he denied having a preference. Pt states no concerns with going home at time of dc. Pt states no further concerns/needs. CM to follow. Advised pt to ask CM if any further question/concerns/needs arise, voices understanding. Pt Goal: Home Plan: Home
[2021-07-03 16:26] LABS: Bedside Glucose 155 mg/dL (70-110)
--- NOTE | 2021-07-03 17:39 | PCM.PN.HOSP ---
Subjective Subjective Patient states he is very scared that he will decompensate further. He has no overall questions. He states he feels about the same as he did when he presented. He is currently on air Vo at 92% with a flow of 60 L/min and oxygen saturations anywhere from 90 to 93%. He has required BiPAP intermittently. Objective Data Objective Data Vital Signs: Vital Signs Temp Pulse Resp BP Pulse Ox 98.6 F 90 22 H 124/74 H 91 07/03/21 16:01 07/03/21 16:01 07/03/21 16:01 07/03/21 16:01 07/03/21 16:01 Oxygen Flow Rate (L/min) 60 Oxygen Delivery Method Airvo Weight: 154.5 kg Body Mass Index (BMI) 51.7 Intake & Output: Intake and Output for Last 24 Hours 07/01/21 07/02/21 07/03/21 23:59 23:59 23:59 Intake Total 250 / 250 531.75 / 531.75 Output Total 950 / 950 Balance 250 / -250 -418.25 / -418.25 Medical Nutrition Assessment Dietitian: Malnutrition Criteria Met Start: 07/03/21 11:47 Freq: Status: Active Protocol: Document 07/03/21 11:47 SLA (Rec: 07/03/21 11:48 SLA [id number]) Nutrition Malnutrition Evidence of Malnutrition Exists Yes Malnutrition (severe): Acute Illness/Injury Evidenced By Suboptimal Energy Intake ( Severe),Weight Loss (Severe) Clinical Problem Acute Disease or Injury Related Malnutrition Etiology related to acute illness and inability to meet est nutritional needs via oral diet Signs/Symptoms as evidenced by <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 Status Active Problem Recommendation Dietitian Recommendations/Changes Will change diet to liberal Regular d/t signs/symptoms of malnutrition Will provide 8 oz ensure clear w/ meals for increased nutrition if consumed Will adjust diet / ONS at time of follow up pending po intake/gluc levels/weight changes Lab / Micro Data Result Diagrams: 07/03/21 06:20 07/03/21 06:20 Labs: Laboratory Results - last 24 hr 07/02/21 20:50: POC Glucose 177 H 07/02/21 23:33: Urine Color Yellow, Urine Clarity Clear, Urine pH 5.0, Ur Specific [place] 1.015, Urine Protein 30 H, Urine Glucose (UA) Normal, Urine Ketones 15 H, Urine Occult Blood Negative, Urine Nitrite Negative, Urine Bilirubin Negative, Urine Urobilinogen Normal, Ur Leukocyte Esterase Negative, Urine RBC 0 SEEN, Urine WBC 0 SEEN, Ur Squamous Epith Cells 0 SEEN, Urine Bacteria 0 SEEN, Urine Mucus 0 SEEN 07/03/21 06:20: WBC 8.1, RBC 5.35, Hgb 15.4, Hct 45.8, MCV 85.6, MCH 28.8, MCHC 33.6, RDW Std Deviation 41.2, RDW Coeff of Ying 13.1, Plt Count 158, MPV 10.3 07/03/21 06:20: Sodium 138, Potassium 3.9, Chloride 107, Carbon Dioxide 24.0, Anion Gap 7, BUN 17, Creatinine 0.80, Estim Creat Clear Calc 134.19, Est GFR (MDRD) Af Amer 149, Est GFR (MDRD) Non-Af 123, BUN/Creatinine Ratio 21.3 H, Glucose 130 H, Calcium 8.9, Total Bilirubin 0.50, AST 18, ALT 40, Alkaline Phosphatase 63, Total Protein 7.2, Albumin 2.7 L, Globulin 4.5 H, Albumin/Globulin Ratio 0.6 L 07/03/21 06:20: Hemoglobin A1c 5.8 H 07/03/21 06:20: C-React Prot Ext Range 118.00 H 07/03/21 06:38: POC Glucose 143 H 07/03/21 11:06: POC Glucose 155 H 07/03/21 15:59: POC Glucose 155 H Micro: Microbiology 07/02/21 23:33 Urine, Clean Catch Urine Culture - Preliminary Culture exhibits no growth. 07/02/21 23:33 Urine, Clean Catch Legionella Antigen - Final 07/02/21 23:33 Urine, Clean Catch Streptococcus pneumoniae Antigen (M - Final 07/02/21 15:05 Nasal Secretion SARS-CoV-2 Antigen (Rapid) - Final SARS-CoV-2 (COVID 19) Physical Exam Const alert and oriented x3 Constitutional Narrative: Super morbidly obese white male sitting up in bed, mildly tachypneic but appears nontoxic, mild conversational dyspnea Exam Limitations: no limitations Nutritional Appearance: morbidly obese HEENT head/scalp atraumatic, moist oral mucous membranes, oropharynx normal and dentition normal HEENT Narrative: Mallampati 3-4, dentition is good, no thrush Head and Scalp: normocephalic Resp no retractions, no use of accessory muscles and clear to auscultation bilaterally Resp Narrative: Tachypneic but no signs of extremis, diffusely diminished Auscultation: Negative for crackles, rales, rhonchi or wheezes Cardio regular rate, regular rhythm, S1 normal heart sound, S2 normal heart sound, no murmurs, no rub, no gallops, no clicks and no JVD GI normal to inspection, nondistended, normoactive bowel sounds, soft to palpation, non-tender and non-distended Extremity no clubbing, cyanosis or edema Peripheral Pulses: Yes pulses 2+ throughout Neuro CN's II-XII intact bilaterally, moves all extremities and no focal motor deficits Sensorium / Orientation: awake and alert Assessment & Plan Assessment/Plan (1) Acute respiratory failure with hypoxia: (2) COVID-19: (3) Hyperglycemia: PLAN: Acute hypoxic respiratory failure secondary to COVID-19 infection -Patient was nonvaccinated -Symptom onset 06/23/2021 and therefore patient will need isolation until 07/13/2021 -Recommend vaccination once out of isolation -Continue Decadron day 2 of 10 -Continue remdesivir day 2 of 10 -Remdesivir initiated today day -CTA was negative for PE -Patient is currently on air Vo at 92% and 60 L/min with SPO2 of 90 to 93% -Incentive spirometer/Acapella -Early mobilization and out of bed -Encourage prone position is able -As needed bronchodilators -She is at extremely high risk for decompensation and requiring intubation but appears to be doing well at this time -Appreciate pulmonary and infectious disease input Hyperglycemia -Steroid-induced -A1c was 5.7 and therefore patient is not diabetic but does appear to have some insulin resistance pattern -We will monitor fasting sugars and if trend up greater than 180 will initiate sliding scale with Accu-Cheks Morbid obesity -Recommend weight loss -BMI is 51.8 -Complicates overall treatment, prognosis, outcomes Asthma -As needed inhalers/nebs Suspected MELONY -Would recommend referral for outpatient polysomnography after patient clinically improved and discharged DVT prophylaxis -Lovenox 40 mg IV twice daily -SCDs CODE STATUS -Full code Charges/Coding Visit Charges Inpatient E&M: 59187 Subs Hosp L2
[2021-07-03] MEDS: LORazepam 1 MG Tablet PO (22:52)
[2021-07-03 23:15] LABS: Bedside Glucose 113 mg/dL (70-110)
[2021-07-04] VITALS (34 sets, daily range): BP systolic 97–122; BP diastolic 48–87; PULSE 61–98; RESP 12–48; TEMP 36.6–37.5; O2SAT 82–100
[2021-07-04] MEDS: LORazepam 2 MG/ML Syringe 1 MG IV (01:56)
[2021-07-04] MEDS: 0.9% Saline Lock 10 ML Syringe IV ×3 (01:57→12:31)
[2021-07-04] MEDS: LORazepam 2 MG/ML Syringe IV (03:57)
[2021-07-04 07:06] LABS: Bedside Glucose 109 mg/dL (70-110)
[2021-07-04 08:34] LABS: Hemoglobin 14.8 g/dL (13.0-16.5); Mean Corp Hgb Conc 31.5 g/dL (32-36); Mean Corpuscular Hgb 28.1 pg (27.0-32.0); Mean Corpuscular Volume 89.2 fL (80-94); Mean Platelet Vol. 10.3 fl (6.2-12.0); Platelet Count 240 K/mm3 (150-450); RBC Distribution Width CV 13.2 % (11.6-14.6); RBC Distribution Width SD 42.9 fl (35.1-43.9); Red Blood Count 5.27 M/mm3 (4.6-6.2); White Blood Count 9.5 K/mm3 (4.4-11.0)
[2021-07-04 08:39] LABS: Scan Indicated on CBC? Y/N NO
--- NOTE | 2021-07-04 08:42 | NURSING ---
called report to icu
[2021-07-04 08:58] LABS: ALB/GLOB Ratio 0.6 RATIO (0.9-2.4); AST(SGOT) 30 U/L (15-37); Alanine Aminotransfer ALT/SGPT 50 U/L (16-61); Albumin, Serum 2.6 g/dL (3.2-5.0); Alkaline Phosphatase 64 U/L (45-117); Anion Gap 8 (5-15); BUN 19 mg/dL (7-18); BUN/Creat Ratio 17.3 RATIO (10-20); Calcium,Total 9.1 mg/dL (8.5-10.1); Chloride 105 mmol/L (98-107); EST Glomerular Filtration Rate 85 mL/min (>60); Est Glom Filt Rate - Afr Amer 103 mL/min (>60); Estimated Creatinine Clearance 97.59 ml/min; Globulin 4.4 g/dL (2.2-4.2); Glucose 108 mg/dL (74-106); Potassium 3.7 mmol/L (3.5-5.1); Sodium Level 142 mmol/L (136-145)
--- NOTE | 2021-07-04 11:35 | PCM.PN.INT ---
Assessment & Plan Assessment/Plan (1) Acute respiratory failure with hypoxia: (2) COVID-19: (3) Morbid obesity: PLAN: RECOMMENDATIONS: 1. Continue BiPAP for now with Airvo breaks if tolerated 2. Agree with Decadron (07/12/2021), Remdesivir (07/06/2021) and baricitinib (07/16/2021) 3. Transfer to intensive care unit for closer monitoring 4. Monitor for complications of therapy with daily labs 5. Encourage prone position, Acapella and incentive spirometer as tolerated 6. Initiate bronchodilators as needed IMPRESSIONS: 1. Acute hypoxic respiratory failure secondary to COVID-19 Patient is appropriately on Decadron and Remdesivir therapy. Patient is likely a good candidate for baricitinib given elevated CRP, but infectious disease has been consulted, so will defer to them. Patient does have a history of asthma. We will add bronchodilators. Patient is already on steroids. Wean supplemental oxygen as tolerated. Agree with transfer to the intensive care unit. Patient is at high risk for need of intubation. We'll continue with BiPAP for now. Precedex can be initiated to help with compliance if necessary. Possibly challenge with diuretics in the next 24 to 48 hours. Await culture data. Initiate empiric antibiotics with any fever. 2. Morbid obesity/asthma/probable MELONY Complicates care, management, recovery and prognosis. Will initiate bronchodilators. Patient should be on BiPAP with sleep to minimize atelectasis and derecruitment. Confirmed with the patient that he is a full code. Subjective Subjective Patient with significant issues overnight. Patient reportedly had been hypoxic despite BiPAP therapy for much of the evening. Attempted prone positioning without improvement. Given concerns for respiratory status and possibility for need of intubation, the patient was transferred to the intensive care unit prior to my initial evaluation for the day. On arrival to the intensive care unit, patient was on BiPAP with adequate saturations and was feeling okay. Patient denied any pain. Patient continues to have a productive cough. Objective Data Objective Data Vital Signs: Vital Signs Temp Pulse Resp BP Pulse Ox 37.5 C H 72 26 H 109/61 97 07/04/21 07:48 07/04/21 11:00 07/04/21 11:00 07/04/21 11:00 07/04/21 11:00 Oxygen Flow Rate (L/min) 100 Oxygen Delivery Method Bi-pap Weight: 154.5 kg Body Mass Index (BMI) 51.7 Intake & Output: Intake and Output for Last 24 Hours 07/02/21 07/03/21 07/04/21 23:59 23:59 23:59 Intake Total 250 / 250 981.75 / 981.75 250 / 250 Output Total 950 / 1250 900 / 900 Balance 250 / -250 31.75 / -268.25 -650 / -650 Medical Nutrition Assessment Dietitian: Malnutrition Criteria Met Start: 07/03/21 11:47 Freq: Status: Active Protocol: Document 07/03/21 11:47 SLA (Rec: 07/03/21 11:48 SLA [id number]) Nutrition Malnutrition Evidence of Malnutrition Exists Yes Malnutrition (severe): Acute Illness/Injury Evidenced By Suboptimal Energy Intake ( Severe),Weight Loss (Severe) Clinical Problem Acute Disease or Injury Related Malnutrition Etiology related to acute illness and inability to meet est nutritional needs via oral diet Signs/Symptoms as evidenced by <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 4.3% wt loss x 10 days Status Active Problem Recommendation Dietitian Recommendations/Changes Will change diet to liberal Regular d/t signs/symptoms of malnutrition Will provide 8 oz ensure clear w/ meals for increased nutrition if consumed Will adjust diet / ONS at time of follow up pending po intake/gluc levels/weight changes Lab / Micro Data Result Diagrams: 07/04/21 07:52 07/04/21 07:52 Labs: Laboratory Results - last 24 hr 07/03/21 11:06: POC Glucose 155 H 07/03/21 15:59: POC Glucose 155 H 07/03/21 22:56: POC Glucose 113 H 07/04/21 06:47: POC Glucose 109 07/04/21 07:52: WBC 9.5, RBC 5.27, Hgb 14.8, Hct 47.0, MCV 89.2, MCH 28.1, MCHC 31.5 L D, RDW Std Deviation 42.9, RDW Coeff of Yign 13.2, Plt Count 240, MPV 10.3 07/04/21 07:52: Sodium 142, Potassium 3.7, Chloride 105, Carbon Dioxide 29.0, Anion Gap 8, BUN 19 H, Creatinine 1.10, Estim Creat Clear Calc 97.59, Est GFR (MDRD) Af Amer 103, Est GFR (MDRD) Non-Af 85, BUN/Creatinine Ratio 17.3, Glucose 108 H, Calcium 9.1, Total Bilirubin 0.40, AST 30, ALT 50, Alkaline Phosphatase 64, Total Protein 7.0, Albumin 2.6 L, Globulin 4.4 H, Albumin/Globulin Ratio 0.6 L Micro: Microbiology 07/02/21 23:33 Urine, Clean Catch Urine Culture - Final Mixed Gram Positive Organisms 07/02/21 23:33 Urine, Clean Catch Legionella Antigen - Final 07/02/21 23:33 Urine, Clean Catch Streptococcus pneumoniae Antigen (M - Final 07/02/21 15:05 Nasal Secretion SARS-CoV-2 Antigen (Rapid) - Final SARS-CoV-2 (COVID 19) Physical Exam Const alert and oriented x3 Constitutional Narrative: Awake on BiPAP. Mild respiratory distress. Mild conversational dyspnea. General Appearance: cooperative Nutritional Appearance: morbidly obese HEENT normocephalic and head/scalp atraumatic Eyes Eyes Narrative: No icterus Neck no lymphadenopathy Neck Narrative: No thyromegaly. [place] hump noted. Chest inspection of chest normal Chest: symmetrical chest wall rise; Negative for crepitus Resp no retractions and no use of accessory muscles Effort and Inspection: tachypneic Auscultation: diminished lung sounds; Negative for rales, rhonchi or wheezes Cardio regular rate, regular rhythm, S1 normal heart sound and S2 normal heart sound GI normal to inspection, nondistended, normoactive bowel sounds, soft to palpation, non-tender and non-distended Extremity normal to inspection and no clubbing, cyanosis or edema Skin no rashes or lesions noted Neuro Sensorium / Orientation: awake and alert Psych Mood & Affect: anxious Charges/Coding Visit Charges Inpatient E&M: 18913 Subs Hosp L3
[2021-07-04 11:51] LABS: Bedside Glucose 92 mg/dL (70-110)
[2021-07-04] MEDS: Enoxaparin 40 MG/0.4 ML Syringe SC ×2 (12:34→21:15)
[2021-07-04] MEDS: Furosemide 40 MG/4 ML Vial IV (13:40)
[2021-07-04] MEDS: dexAMETHasone 10 MG/ML Vial 6 MG IV (13:40)
--- NOTE | 2021-07-04 16:39 | PCM.PN.HOSP ---
Subjective Subjective Patient with significant increase in tachypnea and required continuous BiPAP at 100% and therefore was transferred to the ICU. Doing a bit better at this time as BiPAP has been weaned to approximately 80%. Discussed with nursing and we can try air Vo and see how he does clinically. Patient has no specific complaints other than his shortness of breath at this time. Objective Data Objective Data Vital Signs: Vital Signs Temp Pulse Resp BP Pulse Ox 98.1 F 89 37 H 108/66 90 07/04/21 16:00 07/04/21 16:18 07/04/21 16:00 07/04/21 16:00 07/04/21 16:00 Oxygen Flow Rate (L/min) 60 Oxygen Delivery Method Airvo Weight: 154.5 kg Body Mass Index (BMI) 51.7 Intake & Output: Intake and Output for Last 24 Hours 07/02/21 07/03/21 07/04/21 23:59 23:59 23:59 Intake Total 250 / 250 981.75 / 981.75 730 / 730 Output Total 950 / 1250 1550 / 1550 Balance 250 / -250 31.75 / -268.25 -820 / -820 Medical Nutrition Assessment Dietitian: Malnutrition Criteria Met Start: 07/03/21 11:47 Freq: Status: Active Protocol: Document 07/03/21 11:47 MINNA (Rec: 07/03/21 11:48 MINNA [id number]) Nutrition Malnutrition Evidence of Malnutrition Exists Yes Malnutrition (severe): Acute Illness/Injury Evidenced By Suboptimal Energy Intake ( Severe),Weight Loss (Severe) Clinical Problem Acute Disease or Injury Related Malnutrition Etiology related to acute illness and inability to meet est nutritional needs via oral diet Signs/Symptoms as evidenced by <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 10 days Status Active Problem Recommendation Dietitian Recommendations/Changes Will change diet to liberal Regular d/t signs/symptoms of malnutrition Will provide 8 oz ensure clear w/ meals for increased nutrition if consumed Will adjust diet / ONS at time of follow up pending po intake/gluc levels/weight changes Lab / Micro Data Result Diagrams: 07/04/21 07:52 07/04/21 07:52 Labs: Laboratory Results - last 24 hr 07/03/21 22:56: POC Glucose 113 H 07/04/21 06:47: POC Glucose 109 07/04/21 07:52: WBC 9.5, RBC 5.27, Hgb 14.8, Hct 47.0, MCV 89.2, MCH 28.1, MCHC 31.5 L D, RDW Std Deviation 42.9, RDW Coeff of Ying 13.2, Plt Count 240, MPV 10.3 07/04/21 07:52: Sodium 142, Potassium 3.7, Chloride 105, Carbon Dioxide 29.0, Anion Gap 8, BUN 19 H, Creatinine 1.10, Estim Creat Clear Calc 97.59, Est GFR (MDRD) Af Amer 103, Est GFR (MDRD) Non-Af 85, BUN/Creatinine Ratio 17.3, Glucose 108 H, Calcium 9.1, Total Bilirubin 0.40, AST 30, ALT 50, Alkaline Phosphatase 64, Total Protein 7.0, Albumin 2.6 L, Globulin 4.4 H, Albumin/Globulin Ratio 0.6 L 07/04/21 11:47: POC Glucose 92 Micro: Microbiology 07/03/21 06:45 Sputum, Expectorated/Coughed Gram Stain - Final 07/03/21 06:45 Sputum, Expectorated/Coughed Respiratory Culture - Preliminary Appears to be normal respiratory ron. Further studies to follow. 07/02/21 14:29 Blood Culture (Wb) - Right Hand Blood Culture - Preliminary No growth in 48 hours. 07/02/21 15:10 Blood Culture (Wb) - Left Hand Blood Culture - Preliminary No growth in 48 hours. 07/02/21 23:33 Urine, Clean Catch Urine Culture - Final Mixed Gram Positive Organisms 07/02/21 23:33 Urine, Clean Catch Legionella Antigen - Final 07/02/21 23:33 Urine, Clean Catch Streptococcus pneumoniae Antigen (M - Final 07/02/21 15:05 Nasal Secretion SARS-CoV-2 Antigen (Rapid) - Final SARS-CoV-2 (COVID 19) Physical Exam Const alert and oriented x3 Constitutional Narrative: Super morbidly obese white male lying on left side at a slight incline, significant tachypnea on noninvasive ventilation but appears nontoxic General Appearance: cooperative Exam Limitations: no limitations Nutritional Appearance: morbidly obese HEENT normocephalic, head/scalp atraumatic, moist oral mucous membranes, oropharynx normal and dentition normal HEENT Narrative: No thrush, Mallampati 3-4 Head and Scalp: normocephalic Eyes Eyes Narrative: No icterus Resp normal respiratory effort, no retractions, no use of accessory muscles and clear to auscultation bilaterally Resp Narrative: Tachypneic, diffusely diminished Auscultation: Negative for crackles, rales, rhonchi or wheezes Cardio regular rate, regular rhythm, S1 normal heart sound, S2 normal heart sound, no murmurs, no rub, no gallops, no clicks and no JVD GI normal to inspection, nondistended, normoactive bowel sounds, soft to palpation, non-tender and non-distended Extremity no clubbing, cyanosis or edema Peripheral Pulses: Yes pulses 2+ throughout Neuro moves all extremities and no focal motor deficits Sensorium / Orientation: awake and alert Assessment & Plan Assessment/Plan (1) Acute respiratory failure with hypoxia: (2) COVID-19: (3) Hyperglycemia: PLAN: Acute hypoxic respiratory failure secondary to COVID-19 infection -Patient was nonvaccinated -Symptom onset 06/23/2021 and therefore patient will need isolation until 07/13/2021 -Recommend vaccination once out of isolation -Continue Decadron day 3 of 10 -Continue remdesivir day 3 of 10 -Remdesivir initiated today day 2 of 14 -CTA was negative for PE -Patient is currently on BiPAP at 85% with an SPO2 of 93% -Incentive spirometer/Acapella -mobilization and out of bed -Encourage prone position is able -As needed bronchodilators -He is at extremely high risk for decompensation and requiring intubation -Appreciate pulmonary and infectious disease input Hyperglycemia -Steroid-induced -Blood sugars only 1 await this morning on fasting BMP -A1c was 5.7 and therefore patient is not diabetic but does appear to have some insulin resistance pattern -We will monitor fasting sugars and if trend up greater than 180 will initiate sliding scale with Accu-Cheks Morbid obesity -Recommend weight loss -BMI is 51.8 -Complicates overall treatment, prognosis, outcomes Asthma -As needed inhalers/nebs Suspected MELONY -Would recommend referral for outpatient polysomnography after patient clinically improved and discharged DVT prophylaxis -Lovenox 40 mg IV twice daily -SCDs CODE STATUS -Full code Charges/Coding Visit Charges Inpatient E&M: 45538 Subs Hosp L2
[2021-07-04 16:51] LABS: Bedside Glucose 137 mg/dL (70-110)
[2021-07-04] MEDS: Acetaminophen 325 MG Tablet 650 MG PO (21:15)
[2021-07-05] VITALS (35 sets, daily range): BP systolic 100–132; BP diastolic 58–99; PULSE 49–85; RESP 12–38; TEMP 36–36.8; O2SAT 85–98
[2021-07-05 01:21] LABS: Bedside Glucose 146 mg/dL (70-110)
[2021-07-05 06:17] LABS: Hematocrit 45.6 % (40-54); Mean Corp Hgb Conc 32.9 g/dL (32-36); Mean Corpuscular Hgb 28.7 pg (27.0-32.0); Mean Corpuscular Volume 87.2 fL (80-94); Mean Platelet Vol. 10.3 fl (6.2-12.0); Platelet Count 256 K/mm3 (150-450); RBC Distribution Width CV 12.8 % (11.6-14.6); RBC Distribution Width SD 40.9 fl (35.1-43.9); Red Blood Count 5.23 M/mm3 (4.6-6.2); White Blood Count 6.7 K/mm3 (4.4-11.0)
[2021-07-05 06:56] LABS: ALB/GLOB Ratio 0.6 RATIO (0.9-2.4); AST(SGOT) 24 U/L (15-37); Alanine Aminotransfer ALT/SGPT 50 U/L (16-61); Albumin, Serum 2.7 g/dL (3.2-5.0); Alkaline Phosphatase 63 U/L (45-117); Anion Gap 8 (5-15); BUN 23 mg/dL (7-18); BUN/Creat Ratio 26.9 RATIO (10-20); Calcium,Total 9.1 mg/dL (8.5-10.1); Chloride 103 mmol/L (98-107); Creatinine, Serum 0.85 mg/dL (0.70-1.30); EST Glomerular Filtration Rate 114 mL/min (>60); Est Glom Filt Rate - Afr Amer 137 mL/min (>60); Estimated Creatinine Clearance 126.29 ml/min; Globulin 4.6 g/dL (2.2-4.2); Glucose 121 mg/dL (74-106); Potassium 3.6 mmol/L (3.5-5.1); Protein, Total 7.3 g/dL (6.4-8.2); Sodium Level 138 mmol/L (136-145)
[2021-07-05 07:06] LABS: Bedside Glucose 126 mg/dL (70-110)
--- NOTE | 2021-07-05 07:41 | PCM.PN.INT ---
Assessment & Plan Assessment/Plan (1) Acute respiratory failure with hypoxia: (2) COVID-19: (3) Morbid obesity: PLAN: RECOMMENDATIONS: 1. Continue BiPAP with sleep and Airvo breaks if tolerated to facilitate nutrition 2. Agree with Decadron (07/12/2021), Remdesivir (07/06/2021) and baricitinib (07/16/2021) 3. Continue to care for in the intensive care unit for closer monitoring 4. Monitor for complications of therapy with daily labs 5. Encourage prone position, Acapella and incentive spirometer as tolerated 6. Continue bronchodilators as needed IMPRESSIONS: 1. Acute hypoxic respiratory failure secondary to COVID-19 Patient is appropriately on Decadron and Remdesivir therapy. Patient placed on baricitinib by infectious disease. Patient does have a history of asthma. Patient on bronchodilators and steroids. Wean supplemental oxygen as tolerated. Agree with monitoring in the intensive care unit. Patient is at high risk for need of intubation. We'll continue with BiPAP for now. Precedex can be initiated to help with compliance if necessary. We will challenge with diuretics. Await culture data. Initiate panculture and empiric antibiotics with any fever. 2. Morbid obesity/asthma/probable MELONY Complicates care, management, recovery and prognosis. Will initiate bronchodilators. Patient should be on BiPAP with sleep to minimize atelectasis and derecruitment. Confirmed with the patient that he is a full code. Subjective Subjective Patient did okay overnight. Patient was able to tolerate BiPAP with sleep and Airvo during the day. Demands are slowly improving. Patient subjectively feels slightly improved compared to yesterday. No chest pain is been reported. Patient does have a cough that is relatively nonproductive. Objective Data Objective Data Vital Signs: Vital Signs Temp Pulse Resp BP Pulse Ox 36.8 C 74 25 H 130/90 H 95 07/05/21 07:00 07/05/21 07:00 07/05/21 07:00 07/05/21 07:00 07/05/21 07:00 Oxygen Flow Rate (L/min) 60 Oxygen Delivery Method Bi-pap Weight: 153.1 kg Body Mass Index (BMI) 51.7 Intake & Output: Intake and Output for Last 24 Hours 07/03/21 07/04/21 07/05/21 23:59 23:59 23:59 Intake Total 981.75 / 981.75 1979 300 / 300 Output Total 950 / 1250 2175 / 2175 400 / 400 Balance 31.75 / -268.25 -195 / -145 -100 / -100 Medical Nutrition Assessment Dietitian: Malnutrition Criteria Met Start: 07/03/21 11:47 Freq: Status: Active Protocol: Document 07/03/21 11:47 SLA (Rec: 07/03/21 11:48 SLA [id number]) Nutrition Malnutrition Evidence of Malnutrition Exists Yes Malnutrition (severe): Acute Illness/Injury Evidenced By Suboptimal Energy Intake ( Severe),Weight Loss (Severe) Clinical Problem Acute Disease or Injury Related Malnutrition Etiology related to acute illness and inability to meet est nutritional needs via oral diet Signs/Symptoms as evidenced by <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 10 days Status Active Problem Recommendation Dietitian Recommendations/Changes Will change diet to liberal Regular d/t signs/symptoms of malnutrition Will provide 8 oz ensure clear w/ meals for increased nutrition if consumed Will adjust diet / ONS at time of follow up pending po intake/gluc levels/weight changes Lab / Micro Data Result Diagrams: 07/05/21 04:50 07/05/21 04:50 Labs: Laboratory Results - last 24 hr 07/04/21 07:52: WBC 9.5, RBC 5.27, Hgb 14.8, Hct 47.0, MCV 89.2, MCH 28.1, MCHC 31.5 L D, RDW Std Deviation 42.9, RDW Coeff of Ying 13.2, Plt Count 240, MPV 10.3 07/04/21 07:52: Sodium 142, Potassium 3.7, Chloride 105, Carbon Dioxide 29.0, Anion Gap 8, BUN 19 H, Creatinine 1.10, Estim Creat Clear Calc 97.59, Est GFR (MDRD) Af Amer 103, Est GFR (MDRD) Non-Af 85, BUN/Creatinine Ratio 17.3, Glucose 108 H, Calcium 9.1, Total Bilirubin 0.40, AST 30, ALT 50, Alkaline Phosphatase 64, Total Protein 7.0, Albumin 2.6 L, Globulin 4.4 H, Albumin/Globulin Ratio 0.6 L 07/04/21 11:47: POC Glucose 92 07/04/21 16:44: POC Glucose 137 H 07/05/21 00:43: POC Glucose 146 H 07/05/21 04:50: WBC 6.7, RBC 5.23, Hgb 15.0, Hct 45.6, MCV 87.2, MCH 28.7, MCHC 32.9, RDW Std Deviation 40.9, RDW Coeff of Ying 12.8, Plt Count 256, MPV 10.3 07/05/21 04:50: Sodium 138, Potassium 3.6, Chloride 103, Carbon Dioxide 27.0, Anion Gap 8, BUN 23 H, Creatinine 0.85, Estim Creat Clear Calc 126.29, Est GFR (MDRD) Af Amer 137, Est GFR (MDRD) Non-Af 114, BUN/Creatinine Ratio 26.9 H, Glucose 121 H, Calcium 9.1, Total Bilirubin 0.50, AST 24, ALT 50, Alkaline Phosphatase 63, Total Protein 7.3, Albumin 2.7 L, Globulin 4.6 H, Albumin/Globulin Ratio 0.6 L 07/05/21 07:00: POC Glucose 126 H Micro: Microbiology 07/03/21 06:45 Sputum, Expectorated/Coughed Gram Stain - Final 07/03/21 06:45 Sputum, Expectorated/Coughed Respiratory Culture - Final 07/04/21 21:15 Interface Orders Gram Stain - Preliminary 07/02/21 14:29 Blood Culture (Wb) - Right Hand Blood Culture - Preliminary No growth in 48 hours. 07/02/21 15:10 Blood Culture (Wb) - Left Hand Blood Culture - Preliminary No growth in 48 hours. 07/02/21 23:33 Urine, Clean Catch Urine Culture - Final Mixed Gram Positive Organisms 07/02/21 23:33 Urine, Clean Catch Legionella Antigen - Final 07/02/21 23:33 Urine, Clean Catch Streptococcus pneumoniae Antigen (M - Final 07/02/21 15:05 Nasal Secretion SARS-CoV-2 Antigen (Rapid) - Final SARS-CoV-2 (COVID 19) Physical Exam Const alert and oriented x3 Constitutional Narrative: Awake on BiPAP. Mild respiratory distress. Mild conversational dyspnea. General Appearance: cooperative Nutritional Appearance: morbidly obese HEENT normocephalic and head/scalp atraumatic Eyes Eyes Narrative: No icterus Neck no lymphadenopathy Neck Narrative: No thyromegaly. [place] hump noted. Chest inspection of chest normal Chest: symmetrical chest wall rise; Negative for crepitus Resp no retractions and no use of accessory muscles Auscultation: diminished lung sounds; Negative for rales, rhonchi or wheezes Cardio regular rate, regular rhythm, S1 normal heart sound and S2 normal heart sound GI normal to inspection, nondistended, normoactive bowel sounds, soft to palpation, non-tender and non-distended Extremity normal to inspection and no clubbing, cyanosis or edema Skin no rashes or lesions noted Neuro Sensorium / Orientation: awake and alert Psych Mood & Affect: anxious Charges/Coding Visit Charges Inpatient E&M: 39721 Subs Hosp L3
[2021-07-05] MEDS: Furosemide 20 MG/2 ML VIAL IV (08:36)
[2021-07-05] MEDS: Enoxaparin 40 MG/0.4 ML Syringe SC ×2 (08:38→20:18)
[2021-07-05] MEDS: dexAMETHasone 10 MG/ML Vial 6 MG IV (08:38)
[2021-07-05] MEDS: 0.9% Saline Lock 10 ML Syringe IV (08:41)
[2021-07-05] MEDS: Acetaminophen 325 MG Tablet 650 MG PO ×2 (08:44→15:53)
[2021-07-05 11:50] LABS: Bedside Glucose 133 mg/dL (70-110)
--- NOTE | 2021-07-05 15:45 | PCM.PN.HOSP ---
Subjective Subjective Patient seems to be improving some. He has been able to be placed on air Vo and appears more comfortable. He has no significant point complaints at this time and states that his breathing is more comfortable today. Objective Data Objective Data Vital Signs: Vital Signs Temp Pulse Resp BP Pulse Ox 96.8 F L 76 22 H 123/73 H 91 07/05/21 12:00 07/05/21 15:27 07/05/21 15:27 07/05/21 14:00 07/05/21 15:27 Oxygen Flow Rate (L/min) 60 Oxygen Delivery Method Airvo Weight: 153.1 kg Body Mass Index (BMI) 51.7 Intake & Output: Intake and Output for Last 24 Hours 07/03/21 07/04/21 07/05/21 23:59 23:59 23:59 Intake Total 981.75 / 981.75 1979 540 / 540 Output Total 950 / 1250 2175 / 2175 945 / 945 Balance 31.75 / -268.25 -195 / -145 -405 / -405 Medical Nutrition Assessment Dietitian: Malnutrition Criteria Met Start: 07/03/21 11:47 Freq: Status: Active Protocol: Document 07/05/21 10:55 AG (Rec: 07/05/21 12:35 AG [id number]) Nutrition Malnutrition Evidence of Malnutrition Exists Yes Malnutrition (severe): Acute Illness/Injury Evidenced By Suboptimal Energy Intake ( Severe),Weight Loss (Severe) Clinical Problem Acute Disease or Injury Related Malnutrition Etiology severe, acute malnutrition r/t inadequate energy intake d/t acute illness Signs/Symptoms as evidenced by reported unintentional wt loss of 8. 26kg/5.1% <2 weeks; estimated PO intake meeting <50-75% of estimated energy needs >5 days Status Active Problem Recommendation Dietitian Recommendations/Changes continue regular diet, 8oz ensure clear w/ meals. As PO intake improves, recommend d/c ensure w/ meals and change diet to CHO controlled if hyperglycemia evident. Lab / Micro Data Result Diagrams: 07/05/21 04:50 07/05/21 04:50 Labs: Laboratory Results - last 24 hr 07/04/21 16:44: POC Glucose 137 H 07/05/21 00:43: POC Glucose 146 H 07/05/21 04:50: WBC 6.7, RBC 5.23, Hgb 15.0, Hct 45.6, MCV 87.2, MCH 28.7, MCHC 32.9, RDW Std Deviation 40.9, RDW Coeff of Ying 12.8, Plt Count 256, MPV 10.3 07/05/21 04:50: Sodium 138, Potassium 3.6, Chloride 103, Carbon Dioxide 27.0, Anion Gap 8, BUN 23 H, Creatinine 0.85, Estim Creat Clear Calc 126.29, Est GFR (MDRD) Af Amer 137, Est GFR (MDRD) Non-Af 114, BUN/Creatinine Ratio 26.9 H, Glucose 121 H, Calcium 9.1, Total Bilirubin 0.50, AST 24, ALT 50, Alkaline Phosphatase 63, Total Protein 7.3, Albumin 2.7 L, Globulin 4.6 H, Albumin/Globulin Ratio 0.6 L 07/05/21 07:00: POC Glucose 126 H 07/05/21 11:39: POC Glucose 133 H Micro: Microbiology 07/04/21 21:15 Interface Orders Gram Stain - Final 07/04/21 21:15 Interface Orders Respiratory Culture - Preliminary Appears to be normal respiratory ron. Further studies to follow. 07/03/21 06:45 Sputum, Expectorated/Coughed Gram Stain - Final 07/03/21 06:45 Sputum, Expectorated/Coughed Respiratory Culture - Final 07/02/21 14:29 Blood Culture (Wb) - Right Hand Blood Culture - Preliminary No growth in 48 hours. 07/02/21 15:10 Blood Culture (Wb) - Left Hand Blood Culture - Preliminary No growth in 48 hours. 07/02/21 23:33 Urine, Clean Catch Urine Culture - Final Mixed Gram Positive Organisms 07/02/21 23:33 Urine, Clean Catch Legionella Antigen - Final 07/02/21 23:33 Urine, Clean Catch Streptococcus pneumoniae Antigen (M - Final 07/02/21 15:05 Nasal Secretion SARS-CoV-2 Antigen (Rapid) - Final SARS-CoV-2 (COVID 19) Physical Exam Const alert and oriented x3 Constitutional Narrative: Super morbidly obese white male sitting up in a chair at the bedside, less tachypnea, currently on air Vo, watching television, incentive spirometer and Acapella in his immediate vicinity General Appearance: cooperative Exam Limitations: no limitations Nutritional Appearance: morbidly obese HEENT normocephalic, head/scalp atraumatic, moist oral mucous membranes, oropharynx normal and dentition normal HEENT Narrative: Mallampati 3-4, no thrush Head and Scalp: normocephalic Eyes Eyes Narrative: No icterus Resp normal respiratory effort, no retractions, no use of accessory muscles and clear to auscultation bilaterally Resp Narrative: Mild tachypneic, diffusely diminished Auscultation: Negative for crackles, rales, rhonchi or wheezes Cardio regular rate, regular rhythm, S1 normal heart sound, S2 normal heart sound, no murmurs, no rub, no gallops, no clicks and no JVD GI normal to inspection, nondistended, normoactive bowel sounds, soft to palpation, non-tender and non-distended Extremity no clubbing, cyanosis or edema Peripheral Pulses: Yes pulses 2+ throughout Neuro moves all extremities and no focal motor deficits Sensorium / Orientation: awake and alert Speech: speech normal Assessment & Plan Assessment/Plan (1) Acute respiratory failure with hypoxia: (2) COVID-19: (3) Hyperglycemia: PLAN: Acute hypoxic respiratory failure secondary to COVID-19 infection -Patient was nonvaccinated -Symptom onset 06/23/2021 and therefore patient will need isolation until 07/13/2021 -Recommend vaccination once out of isolation -Continue Decadron day 4 of 10 -Continue remdesivir day 4 of 10 -Baricitinib day 3 of 14 -CTA was negative for PE -Patient is currently on air Vo with a flow of 60 L/min and an FiO2 of 82% SPO2 is 91 to 94% -Incentive spirometer/Acapella -mobilization and out of bed -Encourage prone position is able -As needed bronchodilators -He is at extremely high risk for decompensation and requiring intubation -Appreciate pulmonary and infectious disease input Hyperglycemia -Steroid-induced -Blood sugars 121 this morning fasting -A1c was 5.7 and therefore patient is not diabetic but does appear to have some insulin resistance pattern -Continue SSI -Continue Accu-Cheks Morbid obesity -Recommend weight loss -BMI is 51.8 -Complicates overall treatment, prognosis, outcomes Asthma -As needed inhalers/nebs Suspected MELONY -Would recommend referral for outpatient polysomnography after patient clinically improved and discharged DVT prophylaxis -Lovenox 40 mg IV twice daily -SCDs CODE STATUS -Full code Charges/Coding Visit Charges Inpatient E&M: 61285 Subs Hosp L2
[2021-07-05] MEDS: Insulin Lispro 100 UNIT/ML INSULN.PEN SC (15:50)
[2021-07-05 15:55] LABS: Bedside Glucose 184 mg/dL (70-110)
--- NOTE | 2021-07-05 23:09 | EKG12_ITS ---
Test Reason : Blood Pressure : / mmHG Vent. Rate : 060 BPM Atrial Rate : 060 BPM P-R Int : 180 ms QRS Dur : 100 ms QT Int : 408 ms P-R-T Axes : 047 016 024 degrees QTc Int : 408 ms Normal sinus rhythm with sinus arrhythmia Normal ECG No previous ECGs available Confirmed by DANII NORRIS, PRAVEENA ([id number]), film editor supervisor KATHY CHA ([id number]) on 07/10/2021 8:21:41 AM Referred By: Confirmed By:FRANTZ FOY MD
[2021-07-06] VITALS (29 sets, daily range): BP systolic 113–134; BP diastolic 64–96; PULSE 45–82; RESP 12–38; TEMP 36.1–37; O2SAT 90–95
[2021-07-06 03:51] LABS: Hematocrit 42.4 % (40-54); Hemoglobin 14.2 g/dL (13.0-16.5); Mean Corp Hgb Conc 33.5 g/dL (32-36); Mean Corpuscular Volume 86.7 fL (80-94); Platelet Count 247 K/mm3 (150-450); RBC Distribution Width CV 12.7 % (11.6-14.6); RBC Distribution Width SD 40.5 fl (35.1-43.9); Red Blood Count 4.89 M/mm3 (4.6-6.2)
[2021-07-06 04:03] LABS: ALB/GLOB Ratio 0.6 RATIO (0.9-2.4); AST(SGOT) 17 U/L (15-37); Alanine Aminotransfer ALT/SGPT 49 U/L (16-61); Albumin, Serum 2.6 g/dL (3.2-5.0); Alkaline Phosphatase 60 U/L (45-117); Anion Gap 6 (5-15); BUN 21 mg/dL (7-18); BUN/Creat Ratio 25.7 RATIO (10-20); Calcium,Total 8.4 mg/dL (8.5-10.1); Chloride 104 mmol/L (98-107); Creatinine, Serum 0.82 mg/dL (0.70-1.30); EST Glomerular Filtration Rate 119 mL/min (>60); Est Glom Filt Rate - Afr Amer 144 mL/min (>60); Estimated Creatinine Clearance 130.91 ml/min; Glucose 123 mg/dL (74-106); Potassium 3.6 mmol/L (3.5-5.1); Protein, Total 6.6 g/dL (6.4-8.2); Sodium Level 140 mmol/L (136-145)
--- NOTE | 2021-07-06 06:31 | PN.CC_ITS ---
Assessment & Plan Assessment/Plan (1) Acute respiratory failure with hypoxia: (2) COVID-19: PLAN: RECOMMENDATIONS: 1. Continue BiPAP with sleep and Airvo breaks if tolerated to facilitate nu trition 2. Agree with Decadron (07/12/2021), Remdesivir (07/06/2021) and baricitinib (07/16/2021) 3. Encourage prone position, Acapella and incentive spirometer as tolerated 4. Continue bronchodilators as needed. 5. The patient can be transferred out of the ICU from my perspective. IMPRESSIONS: 1. Acute hypoxic respiratory failure secondary to COVID-19 The patient presented to the hospital on July 02 with worsening shortness of breath. He is unvaccinated against coronavirus. His oxygenation status has worsened over the course of his hospitalization. However, he has been stable now for the last 24 hours on a combination of BiPAP and heated high flow oxygen, which will be continued to maintain saturations at or above 90%. The patient will be continued on remdesivir, Decadron and baricitinib as ordered. Continue to encourage incentive spirometer use. Awake prone positioning was encouraged. 2. Morbid obesity/asthma/probable MELONY Complicates care, management, recovery and prognosis. The patient should be on BiPAP with sleep to minimize atelectasis and derecruitment. This note was generated with [employer] dictation software. It may contain incorrect words, spelling, and punctuation that were not noted in checking the note before signing. Subjective Subjective The patient was seen and examined at the bedside this morning. Events from the last 24 hours have been reviewed. The patient is currently maintaining appropri ate oxygen saturations on BiPAP with an FiO2 requirement of 70%. He was maintained on Airvo heated high flow throughout the day yesterday. Overnight, nursing staff did report periods of bradycardia and sinus pauses. The patient is currently afebrile and hemodynamically stable. He is currently documented to be overall net -850 mL for the hospitalization. The patient remains on remdesivir, prophylactic Lovenox, Decadron and baricitinib. Objective Data Objective Data The patient's most recent lab work, culture data and imaging studies have all been personally reviewed. Rapid coronavirus antigen testing was positive on July 02. Strep and urine Legionella antigens were negative. Sputum culture has not demonstrated any growth to date. Vital Signs: Vital Signs Temp Pulse Resp BP Pulse Ox 98.5 F 74 30 H 128/89 H 93 07/06/21 04:00 07/06/21 06:00 07/06/21 06:00 07/06/21 06:00 07/06/21 06:00 Oxygen Flow Rate (L/min) 60 Oxygen Delivery Method Bi-pap Weight: 151.5 kg Body Mass Index (BMI) 51.7 Intake & Output: Intake and Output for Last 24 Hours 07/04/21 07/05/21 07/06/21 23:59 23:59 23:59 Intake Total 1979 1030 / 1030 Output Total 2175 / 2175 1620 / 1620 350 / 350 Balance -195 / -145 -590 / -590 -350 / -350 Medical Nutrition Assessment Dietitian: Malnutrition Criteria Met Start: 07/03/21 11:47 Freq: Status: Active Protocol: Document 07/05/21 10:55 AG (Rec: 07/05/21 12:35 AG [id number]) Nutrition Malnutrition Evidence of Malnutrition Exists Yes Malnutrition (severe): Acute Illness/Injury Evidenced By Suboptimal Energy Intake ( Severe),Weight Loss (Severe) Clinical Problem Acute Disease or Injury Related Malnutrition Etiology severe, acute malnutrition r/t inadequate energy intake d/t acute illness Signs/Symptoms as evidenced by reported unintentional wt loss of 8. 26kg/5.1% <2 weeks; estimated PO intake meeting <50-75% of estimated energy needs >5 days Status Active Problem Recommendation Dietitian Recommendations/Changes continue regular diet, 8oz ensure clear w/ meals. As PO intake improves, recommend d/c ensure w/ meals and change diet to CHO controlled if hyperglycemia evident. Lab / Micro Data Attestation: I reviewed the patient's lab results. Result Diagrams: 07/06/21 03:30 07/06/21 03:30 Labs: Laboratory Results - last 24 hr 07/05/21 04:50: Sodium 138, Potassium 3.6, Chloride 103, Carbon Dioxide 27.0, Anion Gap 8, BUN 23 H, Creatinine 0.85, Estim Creat Clear Calc 126.29, Est GFR (MDRD) Af Amer 137, Est GFR (MDRD) Non-Af 114, BUN/Creatinine Ratio 26.9 H, Glucose 121 H, Calcium 9.1, Total Bilirubin 0.50, AST 24, ALT 50, Alkaline Phosphatase 63, Total Protein 7.3, Albumin 2.7 L, Globulin 4.6 H, Albumin/Globu ingrid Ratio 0.6 L 07/05/21 07:00: POC Glucose 126 H 07/05/21 11:39: POC Glucose 133 H 07/05/21 15:48: POC Glucose 184 H 07/06/21 03:30: WBC 8.0, RBC 4.89, Hgb 14.2, Hct 42.4, MCV 86.7, MCH 29.0, MCHC 33.5, RDW Std Deviation 40.5, RDW Coeff of Ying 12.7, Plt Count 247, MPV 10.0 07/06/21 03:30: Sodium 140, Potassium 3.6, Chloride 104, Carbon Dioxide 30.0, Anion Gap 6, BUN 21 H, Creatinine 0.82, Estim Creat Clear Calc 130.91, Est GFR (MDRD) Af Amer 144, Est GFR (MDRD) Non-Af 119, BUN/Creatinine Ratio 25.7 H, Glucose 123 H, Calcium 8.4 L, Total Bilirubin 0.30, AST 17, ALT 49, Alkaline Phosphatase 60, Total Protein 6.6, Albumin 2.6 L, Globulin 4.0, Albumin/Globulin Ratio 0.6 L Micro: Microbiology 07/04/21 21:15 Interface Orders Gram Stain - Final 07/04/21 21:15 Interface Orders Respiratory Culture - Preliminary Appears to be normal respiratory ron. Further studies to follow. 07/03/21 06:45 Sputum, Expectorated/Coughed Gram Stain - Final 07/03/21 06:45 Sputum, Expectorated/Coughed Respiratory Culture - Final 07/02/21 14:29 Blood Culture (Wb) - Right Hand Blood Culture - Preliminary No growth in 48 hours. 07/02/21 15:10 Blood Culture (Wb) - Left Hand Blood Culture - Preliminary No growth in 48 hours. 07/02/21 23:33 Urine, Clean Catch Urine Culture - Final Mixed Gram Positive Organisms 07/02/21 23:33 Urine, Clean Catch Legionella Antigen - Final 07/02/21 23:33 Urine, Clean Catch Streptococcus pneumoniae Antigen (M - Final 07/02/21 15:05 Nasal Secretion SARS-CoV-2 Antigen (Rapid) - Final SARS-CoV-2 (COVID 19) Physical Exam Const alert and oriented x3 General Appearance: cooperative and on BiPAP Nutritional Appearance: morbidly obese HEENT normocephalic and head/scalp atraumatic Eyes PERRL, EOMs intact bilaterally and conjunctivae normal Neck supple General: trachea midline Chest inspection of chest normal Chest: symmetrical chest wall rise; Negative for crepitus Resp no retractions and no use of accessory muscles Auscultation: diminished lung sounds; Negative for rales, rhonchi or wheezes Cardio regular rate, regular rhythm, S1 normal heart sound and S2 normal heart sound GI normal to inspection, nondistended, normoactive bowel sounds, soft to palpation, non-tender and non-distended Extremity normal to inspection and no clubbing, cyanosis or edema Skin no rashes or lesions noted Neuro no focal motor deficits Sensorium / Orientation: awake and alert Psych cooperative and affect normal Charges/Coding Visit Charges Inpatient E&M: 90104 Subs Hosp L3
[2021-07-06] MEDS: Acetaminophen 325 MG Tablet 650 MG PO ×2 (08:31→20:29)
[2021-07-06] MEDS: dexAMETHasone 10 MG/ML Vial 6 MG IV (08:31)
[2021-07-06] MEDS: Enoxaparin 40 MG/0.4 ML Syringe SC ×2 (08:32→20:29)
[2021-07-06] MEDS: CHLORHEXIDINE GLUC 2% CLOTH 1 EACH TOWELETTE TOPICAL (08:32)
--- NOTE | 2021-07-06 10:52 | PN.HOSP_ITS ---
Subjective Subjective Patient seen and examined. He was on arrival. He had no active complaints. He said he felt his breathing was getting better. Patient is tachypneic today with respiratory rate of 24 but otherwise feels well. He is on FiO2 of 75% with oxygen flow rate of 60 L/min. Objective Data Objective Data Vital Signs: Vital Signs Temp Pulse Resp BP Pulse Ox 97.1 F L 57 L 24 H 119/80 95 07/06/21 08:00 07/06/21 08:00 07/06/21 08:00 07/06/21 08:00 07/06/21 08:00 Oxygen Flow Rate (L/min) 60 Oxygen Delivery Method Airvo Weight: 334 lb 0.005 oz Body Mass Index (BMI) 51.7 Intake & Output: Intake and Output for Last 24 Hours 07/04/21 07/05/21 07/06/21 23:59 23:59 23:59 Intake Total 1979 / 2029 1030 / 1030 Output Total 2175 / 2175 1620 / 1620 350 / 350 Balance -195 / -145 -590 / -590 -350 / -350 Medical Nutrition Assessment Dietitian: Malnutrition Criteria Met Start: 07/03/21 11:47 Freq: Status: Active Protocol: Document 07/06/21 10:23 RMA (Rec: 07/06/21 10:23 RMA [id number]) Nutrition Malnutrition Evidence of Malnutrition Exists Yes Malnutrition (severe): Acute Illness/Injury Evidenced By Suboptimal Energy Intake ( Severe),Weight Loss (Severe) Clinical Problem Acute Disease or Injury Related Malnutrition Etiology severe, acute malnutrition r/t inadequate energy intake d/t acute illness Signs/Symptoms as evidenced by reported unintentional wt loss of 8. 26kg/5.1% <2 weeks; estimated PO intake meeting <50-75% of estimated energy needs >5 days Status Active Problem Recommendation Dietitian Recommendations/Changes Will continue Regular Diet for now--monitor need to restrict carbohydrates. Will adjust/decrease ONS to 8oz ensure clear BID w/ meals from TID previously. As PO intake improves, will d/ c ensure clear and change diet to CHO controlled as indicated. Lab / Micro Data Result Diagrams: 07/06/21 03:30 07/06/21 03:30 Labs: Laboratory Results - last 24 hr 07/05/21 11:39: POC Glucose 133 H 07/05/21 15:48: POC Glucose 184 H 07/06/21 03:30: WBC 8.0, RBC 4.89, Hgb 14.2, Hct 42.4, MCV 86.7, MCH 29.0, MCHC 33.5, RDW Std Deviation 40.5, RDW Coeff of Ying 12.7, Plt Count 247, MPV 10.0 07/06/21 03:30: Sodium 140, Potassium 3.6, Chloride 104, Carbon Dioxide 30.0, Anion Gap 6, BUN 21 H, Creatinine 0.82, Estim Creat Clear Calc 130.91, Est GFR (MDRD) Af Amer 144, Est GFR (MDRD) Non-Af 119, BUN/Creatinine Ratio 25.7 H, Glucose 123 H, Calcium 8.4 L, Total Bilirubin 0.30, AST 17, ALT 49, Alkaline Phosphatase 60, Total Protein 6.6, Albumin 2.6 L, Globulin 4.0, Albumin/Globulin Ratio 0.6 L Micro: Microbiology 07/04/21 21:15 Interface Orders Gram Stain - Final 07/04/21 21:15 Interface Orders Respiratory Culture - Preliminary Appears to be normal respiratory ron. Further studies to follow. 07/03/21 06:45 Sputum, Expectorated/Coughed Gram Stain - Final 07/03/21 06:45 Sputum, Expectorated/Coughed Respiratory Culture - Final 07/02/21 14:29 Blood Culture (Wb) - Right Hand Blood Culture - Preliminary No growth in 48 hours. 07/02/21 15:10 Blood Culture (Wb) - Left Hand Blood Culture - Preliminary No growth in 48 hours. 07/02/21 23:33 Urine, Clean Catch Urine Culture - Final Mixed Gram Positive Organisms 07/02/21 23:33 Urine, Clean Catch Legionella Antigen - Final 07/02/21 23:33 Urine, Clean Catch Streptococcus pneumoniae Antigen (M - Final 07/02/21 15:05 Nasal Secretion SARS-CoV-2 Antigen (Rapid) - Final SARS-CoV-2 (COVID 19) Physical Exam Const alert, oriented x3 and no apparent distress Constitutional Narrative: Super morbid obesity with BMI of 50.8. Exam Limitations: no limitations Nutritional Appearance: morbidly obese HEENT head/scalp atraumatic Head and Scalp: normocephalic Mouth: dry mucous membranes Eyes PERRL, EOMs intact bilaterally and conjunctivae normal Neck no lymphadenopathy Resp Resp Narrative: diminished breath sounds bibasally, no wheezes or crackles. On Airvo. Cardio regular rhythm, S1 normal heart sound and S2 normal heart sound Cardio Narrative: bradycardic GI normal to inspection, nondistended, normoactive bowel sounds, soft to palpation, non-tender and non-distended GI Narrative: obese Extremity normal to inspection, full ROM and no clubbing, cyanosis or edema Peripheral Pulses: Yes pulses 2+ throughout Skin no rashes or lesions noted Neuro oriented x3, CN's II-XII intact bilaterally and moves all extremities Sensorium / Orientation: awake and alert Psych affect normal Assessment & Plan Assessment/Plan (1) Acute respiratory failure with hypoxia: (2) COVID-19: PLAN: #Acute hypoxic respiratory failure due to covid 19 pneumonia * Patient is unvaccinated. To be in isolation till 07/13/2021. * On remdesivir and Decadron. Also on baricitinib. * On Airvo. Titrate oxygen to maintain saturation above 90%. On BiPAP nightly * Incentive spirometer. Breathing treatments medical dilators. * ID and pulmonology on board. * Diurese as needed to maintain euvolemic status. * #Hyperglycemia: Thought to be due to steroids. A1c was only 5.7. Patient is not diabetic. Insulin sliding scale. Dr. Garcia seizures. #Asthma: Not in exacerbation. Breathing treatments with bronchodilators. #Probable MELONY and Obesity hypoventilation syndrome: * will need follow-up with pulmonology on outpatient basis for sleep studies * #Super morbid obesity: Counseled on DASH diet and exercise DVT prophylaxis: Lovenox 40 mg twice daily CODE STATUS: Full code Charges/Coding Visit Charges Inpatient E&M: 81980 Subs Hosp L3
[2021-07-06] MEDS: 0.9% Saline Lock 10 ML Syringe IV (13:52)
[2021-07-07] VITALS (25 sets, daily range): BP systolic 115–138; BP diastolic 59–79; PULSE 42–86; RESP 12–33; TEMP 36.2–36.9; O2SAT 90–96
[2021-07-07 05:13] LABS: Hemoglobin 14.1 g/dL (13.0-16.5); Mean Corp Hgb Conc 32.8 g/dL (32-36); Mean Corpuscular Hgb 28.3 pg (27.0-32.0); Mean Corpuscular Volume 86.3 fL (80-94); Mean Platelet Vol. 9.5 fl (6.2-12.0); Platelet Count 225 K/mm3 (150-450); RBC Distribution Width CV 12.7 % (11.6-14.6); RBC Distribution Width SD 39.8 fl (35.1-43.9); Red Blood Count 4.98 M/mm3 (4.6-6.2); White Blood Count 8.7 K/mm3 (4.4-11.0)
[2021-07-07 05:39] LABS: ALB/GLOB Ratio 0.6 RATIO (0.9-2.4); AST(SGOT) 15 U/L (15-37); Alanine Aminotransfer ALT/SGPT 46 U/L (16-61); Albumin, Serum 2.5 g/dL (3.2-5.0); Alkaline Phosphatase 59 U/L (45-117); Anion Gap 6 (5-15); BUN 20 mg/dL (7-18); BUN/Creat Ratio 24.1 RATIO (10-20); Calcium,Total 8.4 mg/dL (8.5-10.1); Chloride 105 mmol/L (98-107); Creatinine, Serum 0.83 mg/dL (0.70-1.30); EST Glomerular Filtration Rate 118 mL/min (>60); Est Glom Filt Rate - Afr Amer 142 mL/min (>60); Estimated Creatinine Clearance 129.34 ml/min; Glucose 108 mg/dL (74-106); Potassium 3.7 mmol/L (3.5-5.1); Protein, Total 6.5 g/dL (6.4-8.2); Sodium Level 141 mmol/L (136-145)
--- NOTE | 2021-07-07 06:52 | PCM.PN.INT ---
Assessment & Plan Assessment/Plan (1) Acute respiratory failure with hypoxia: (2) COVID-19: PLAN: RECOMMENDATIONS: 1. Continue AVAPS at night and airVo throughout the day. Wean FiO2 for saturations at or above 90%. 2. Continue Decadron and baricitinib to complete treatment courses. 3. Awake prone positioning was encouraged. 4. Continue as needed bronchodilator therapy. IMPRESSIONS: 1. Acute hypoxic respiratory failure secondary to COVID-19 The patient presented to the hospital on July 02 with worsening shortness of breath. He is unvaccinated against coronavirus. The patient will be continued on a combination of AVAPS at night and supplemental oxygen throughout the day. The patient will be continued on remdesivir, Decadron and baricitinib as ordered. Continue to encourage incentive spirometer use. Awake prone positioning was encouraged. 2. Morbid obesity/asthma/probable MELONY Complicates care, management, recovery and prognosis. The patient should be on PAP therapy with sleep to minimize atelectasis and derecruitment. This note was generated with [employer] dictation software. It may contain incorrect words, spelling, and punctuation that were not noted in checking the note before signing. Subjective Subjective The patient was seen and examined at the bedside this morning. Events from the last 24 hours have been reviewed. The patient is currently maintaining appropriate oxygen saturations on AVAPS with an FiO2 requirement of 40%. The patient tolerated Airvo heated high flow throughout the day yesterday. The patient is currently afebrile and hemodynamically stable. He is currently documented to be overall net -1.5L for the hospitalization. The patient completed his treatment course of remdesivir and remains on prophylactic Lovenox, Decadron and baricitinib. Liver and renal function are stable. Objective Data Objective Data The patient's most recent lab work, culture data and imaging studies have all been personally reviewed. Rapid coronavirus antigen testing was positive on July 02. Strep and urine Legionella antigens were negative. Sputum culture has not demonstrated any growth to date. Vital Signs: Vital Signs Temp Pulse Resp BP Pulse Ox 98.3 F 56 L 18 119/75 94 07/07/21 06:00 07/07/21 06:00 07/07/21 06:00 07/07/21 06:00 07/07/21 06:00 Oxygen Flow Rate (L/min) 60 Oxygen Delivery Method Mechanical Ventilator Weight: 153 kg Body Mass Index (BMI) 51.7 Intake & Output: Intake and Output for Last 24 Hours 07/05/21 07/06/21 07/07/21 23:59 23:59 23:59 Intake Total 1030 / 1030 250 / 350 100 / 100 Output Total 1620 / 1620 750 / 1150 600 / 600 Balance -590 / -590 -500 / -800 -500 / -500 Medical Nutrition Assessment Dietitian: Malnutrition Criteria Met Start: 07/03/21 11:47 Freq: Status: Active Protocol: Document 07/06/21 10:23 RMA (Rec: 07/06/21 10:23 RMA [id number]) Nutrition Malnutrition Evidence of Malnutrition Exists Yes Malnutrition (severe): Acute Illness/Injury Evidenced By Suboptimal Energy Intake ( Severe),Weight Loss (Severe) Clinical Problem Acute Disease or Injury Related Malnutrition Etiology severe, acute malnutrition r/t inadequate energy intake d/t acute illness Signs/Symptoms as evidenced by reported unintentional wt loss of 8. 26kg/5.1% <2 weeks; estimated PO intake meeting <50-75% of estimated energy needs >5 days Status Active Problem Recommendation Dietitian Recommendations/Changes Will continue Regular Diet for now--monitor need to restrict carbohydrates. Will adjust/decrease ONS to 8oz ensure clear BID w/ meals from TID previously. As PO intake improves, will d/ c ensure clear and change diet to CHO controlled as indicated. Lab / Micro Data Attestation: I reviewed the patient's lab results. Result Diagrams: 07/07/21 05:00 07/07/21 05:00 Labs: Laboratory Results - last 24 hr 07/07/21 05:00: WBC 8.7, RBC 4.98, Hgb 14.1, Hct 43.0, MCV 86.3, MCH 28.3, MCHC 32.8, RDW Std Deviation 39.8, RDW Coeff of Ying 12.7, Plt Count 225, MPV 9.5 07/07/21 05:00: Sodium 141, Potassium 3.7, Chloride 105, Carbon Dioxide 30.0, Anion Gap 6, BUN 20 H, Creatinine 0.83, Estim Creat Clear Calc 129.34, Est GFR (MDRD) Af Amer 142, Est GFR (MDRD) Non-Af 118, BUN/Creatinine Ratio 24.1 H, Glucose 108 H, Calcium 8.4 L, Total Bilirubin 0.30, AST 15, ALT 46, Alkaline Phosphatase 59, Total Protein 6.5, Albumin 2.5 L, Globulin 4.0, Albumin/Globulin Ratio 0.6 L Micro: Microbiology 07/04/21 21:15 Interface Orders Gram Stain - Final 07/04/21 21:15 Interface Orders Respiratory Culture - Preliminary Appears to be normal respiratory ron. Further studies to follow. 07/03/21 06:45 Sputum, Expectorated/Coughed Gram Stain - Final 07/03/21 06:45 Sputum, Expectorated/Coughed Respiratory Culture - Final 07/02/21 14:29 Blood Culture (Wb) - Right Hand Blood Culture - Preliminary No growth in 48 hours. 07/02/21 15:10 Blood Culture (Wb) - Left Hand Blood Culture - Preliminary No growth in 48 hours. 07/02/21 23:33 Urine, Clean Catch Urine Culture - Final Mixed Gram Positive Organisms 07/02/21 23:33 Urine, Clean Catch Legionella Antigen - Final 07/02/21 23:33 Urine, Clean Catch Streptococcus pneumoniae Antigen (M - Final 07/02/21 15:05 Nasal Secretion SARS-CoV-2 Antigen (Rapid) - Final SARS-CoV-2 (COVID 19) Physical Exam Const alert and oriented x3 General Appearance: cooperative Nutritional Appearance: morbidly obese HEENT normocephalic and head/scalp atraumatic Eyes PERRL, EOMs intact bilaterally and conjunctivae normal Neck supple General: trachea midline Chest inspection of chest normal Chest: symmetrical chest wall rise; Negative for crepitus Resp no retractions and no use of accessory muscles Auscultation: diminished lung sounds; Negative for rales, rhonchi or wheezes Cardio regular rate, regular rhythm, S1 normal heart sound and S2 normal heart sound GI normal to inspection, nondistended, normoactive bowel sounds, soft to palpation, non-tender and non-distended Extremity normal to inspection and no clubbing, cyanosis or edema Skin no rashes or lesions noted Neuro no focal motor deficits Sensorium / Orientation: awake and alert Psych cooperative and affect normal Charges/Coding Visit Charges Inpatient E&M: 10006 Subs Hosp L3
[2021-07-07] MEDS: dexAMETHasone 10 MG/ML Vial 6 MG IV (10:22)
[2021-07-07] MEDS: Enoxaparin 40 MG/0.4 ML Syringe SC ×2 (10:22→20:52)
[2021-07-07] MEDS: CHLORHEXIDINE GLUC 2% CLOTH 1 EACH TOWELETTE TOPICAL (10:22)
--- NOTE | 2021-07-07 14:08 | PN.HOSP_ITS ---
Subjective Subjective Patient seen and examined. He was on BiPAP at time of review. He had no active complaints and review of systems otherwise negative. Objective Data Objective Data Vital Signs: Vital Signs Temp Pulse Resp BP Pulse Ox 97.6 F L 73 20 H 138/79 H 93 07/07/21 10:39 07/07/21 13:00 07/07/21 13:00 07/07/21 13:00 07/07/21 13:00 Oxygen Flow Rate (L/min) 15 Oxygen Delivery Method High Flow Weight: 337 lb 4.916 oz Body Mass Index (BMI) 51.7 Intake & Output: Intake and Output for Last 24 Hours 07/05/21 07/06/21 07/07/21 23:59 23:59 23:59 Intake Total 1030 / 1030 250 / 350 100 / 100 Output Total 1620 / 1620 750 / 1150 950 / 950 Balance -590 / -590 -500 / -800 -850 / -850 Medical Nutrition Assessment Dietitian: Malnutrition Criteria Met Start: 07/03/21 11:47 Freq: Status: Active Protocol: Document 07/06/21 10:23 RMA (Rec: 07/06/21 10:23 RMA [id number]) Nutrition Malnutrition Evidence of Malnutrition Exists Yes Malnutrition (severe): Acute Illness/Injury Evidenced By Suboptimal Energy Intake ( Severe),Weight Loss (Severe) Clinical Problem Acute Disease or Injury Related Malnutrition Etiology severe, acute malnutrition r/t inadequate energy intake d/t acute illness Signs/Symptoms as evidenced by reported unintentional wt loss of 8. 26kg/5.1% <2 weeks; estimated PO intake meeting <50-75% of estimated energy needs >5 days Status Active Problem Recommendation Dietitian Recommendations/Changes Will continue Regular Diet for now--monitor need to restrict carbohydrates. Will adjust/decrease ONS to 8oz ensure clear BID w/ meals from TID previously. As PO intake improves, will d/ c ensure clear and change diet to CHO controlled as indicated. Lab / Micro Data Result Diagrams: 07/07/21 05:00 07/07/21 05:00 Labs: Laboratory Results - last 24 hr 07/07/21 05:00: WBC 8.7, RBC 4.98, Hgb 14.1, Hct 43.0, MCV 86.3, MCH 28.3, MCHC 32.8, RDW Std Deviation 39.8, RDW Coeff of Ying 12.7, Plt Count 225, MPV 9.5 07/07/21 05:00: Sodium 141, Potassium 3.7, Chloride 105, Carbon Dioxide 30.0, Anion Gap 6, BUN 20 H, Creatinine 0.83, Estim Creat Clear Calc 129.34, Est GFR (MDRD) Af Amer 142, Est GFR (MDRD) Non-Af 118, BUN/Creatinine Ratio 24.1 H, Glucose 108 H, Calcium 8.4 L, Total Bilirubin 0.30, AST 15, ALT 46, Alkaline Phosphatase 59, Total Protein 6.5, Albumin 2.5 L, Globulin 4.0, Albumin/Globulin Ratio 0.6 L Micro: Microbiology 07/04/21 21:15 Interface Orders Gram Stain - Final 07/04/21 21:15 Interface Orders Respiratory Culture - Final 07/03/21 06:45 Sputum, Expectorated/Coughed Gram Stain - Final 07/03/21 06:45 Sputum, Expectorated/Coughed Respiratory Culture - Final 07/02/21 14:29 Blood Culture (Wb) - Right Hand Blood Culture - Preliminary No growth in 48 hours. 07/02/21 15:10 Blood Culture (Wb) - Left Hand Blood Culture - Preliminary No growth in 48 hours. 07/02/21 23:33 Urine, Clean Catch Urine Culture - Final Mixed Gram Positive Organisms 07/02/21 23:33 Urine, Clean Catch Legionella Antigen - Final 07/02/21 23:33 Urine, Clean Catch Streptococcus pneumoniae Antigen (M - Final 07/02/21 15:05 Nasal Secretion SARS-CoV-2 Antigen (Rapid) - Final SARS-CoV-2 (COVID 19) Physical Exam Const alert, oriented x3 and no apparent distress Constitutional Narrative: Super morbid obesity General Appearance: cooperative Exam Limitations: no limitations Nutritional Appearance: morbidly obese HEENT normocephalic, head/scalp atraumatic, moist oral mucous membranes, oropharynx normal and dentition normal Head and Scalp: normocephalic Eyes PERRL, EOMs intact bilaterally and conjunctivae normal Neck no lymphadenopathy Resp Resp Narrative: diminished breath sounds bibasally, no wheezes or crackles. On BIPAP at time of review Auscultation: Negative for crackles, rales, rhonchi or wheezes Cardio regular rate, regular rhythm, S1 normal heart sound, S2 normal heart sound, no murmurs, no rub, no gallops, no clicks and no JVD GI normal to inspection, nondistended, normoactive bowel sounds, soft to palpation, non-tender and non-distended Extremity normal to inspection, full ROM and no clubbing, cyanosis or edema Peripheral Pulses: Yes pulses 2+ throughout Skin no rashes or lesions noted Neuro oriented x3, CN's II-XII intact bilaterally, moves all extremities and no focal motor deficits Sensorium / Orientation: awake and alert Speech: speech normal Psych affect normal Mood & Affect: anxious Assessment & Plan Assessment/Plan (1) Acute respiratory failure with hypoxia: (2) COVID-19: PLAN: #Acute hypoxic respiratory failure due to covid 19 pneumonia * Patient is unvaccinated. To be in isolation till 07/13/2021. * On remdesivir and Decadron. Also on baricitinib. * On BIPAP at time of review. On BIPAP qhs and airvo during the day. Titrate oxygen to maintain saturation above 90%. On BiPAP nightly * Incentive spirometer. Breathing treatments medical dilators. * ID and pulmonology on board. * Diurese as needed to maintain euvolemic status. * #Hyperglycemia: * Thought to be due to steroids. A1c was only 5.7. Patient is not diabetic. Insulin sliding scale. Accuchecks ACHS. #Asthma: Not in exacerbation. Breathing treatments with bronchodilators. #Probable MELONY and Obesity hypoventilation syndrome: * will need follow-up with pulmonology on outpatient basis for sleep studies * #Super morbid obesity: Counseled on DASH diet and exercise DVT prophylaxis: Lovenox 40 mg twice daily CODE STATUS: Full code Charges/Coding Visit Charges Inpatient E&M: 65174 Subs Hosp L3
[2021-07-08] VITALS (20 sets, daily range): BP systolic 121–131; BP diastolic 50–78; PULSE 43–78; RESP 12–28; TEMP 36.1–36.8; O2SAT 92–96
[2021-07-08 03:57] LABS: Hematocrit 40.9 % (40-54); Hemoglobin 13.6 g/dL (13.0-16.5); Mean Corp Hgb Conc 33.3 g/dL (32-36); Mean Corpuscular Hgb 28.7 pg (27.0-32.0); Mean Corpuscular Volume 86.3 fL (80-94); Platelet Count 241 K/mm3 (150-450); RBC Distribution Width CV 12.7 % (11.6-14.6); RBC Distribution Width SD 40.2 fl (35.1-43.9); Red Blood Count 4.74 M/mm3 (4.6-6.2); White Blood Count 9.2 K/mm3 (4.4-11.0)
[2021-07-08 04:23] LABS: ALB/GLOB Ratio 0.7 RATIO (0.9-2.4); AST(SGOT) 12 U/L (15-37); Alanine Aminotransfer ALT/SGPT 44 U/L (16-61); Albumin, Serum 2.6 g/dL (3.2-5.0); Alkaline Phosphatase 67 U/L (45-117); Anion Gap 6 (5-15); BUN 19 mg/dL (7-18); BUN/Creat Ratio 24.1 RATIO (10-20); Calcium,Total 8.3 mg/dL (8.5-10.1); Chloride 106 mmol/L (98-107); Creatinine, Serum 0.79 mg/dL (0.70-1.30); EST Glomerular Filtration Rate 125 mL/min (>60); Est Glom Filt Rate - Afr Amer 151 mL/min (>60); Estimated Creatinine Clearance 135.89 ml/min; Globulin 3.6 g/dL (2.2-4.2); Glucose 111 mg/dL (74-106); Potassium 3.7 mmol/L (3.5-5.1); Protein, Total 6.2 g/dL (6.4-8.2); Sodium Level 141 mmol/L (136-145)
--- NOTE | 2021-07-08 06:57 | PN.CC_ITS ---
Assessment & Plan Assessment/Plan (1) Acute respiratory failure with hypoxia: (2) COVID-19: PLAN: RECOMMENDATIONS: 1. Continue AVAPS at night and supplemental oxygen throughout the day to ma intain saturations at or above 90%. 2. Continue Decadron and baricitinib to complete treatment courses. 3. Awake prone positioning was encouraged. 4. Continue as needed bronchodilator therapy. IMPRESSIONS: 1. Acute hypoxic respiratory failure secondary to COVID-19 The patient presented to the hospital on July 02 with worsening shortness of breath. He is unvaccinated against coronavirus. The patient will be continued on a combination of AVAPS at night and supplemental oxygen throughout the day. The patient will be continued on Decadron and baricitinib as ordered. Continue to encourage incentive spirometer use. Awake prone positioning was encouraged. 2. Morbid obesity/asthma/probable MELONY Complicates care, management, recovery and prognosis. The patient should be on PAP therapy with sleep to minimize atelectasis and derecruitment. This note was generated with [employer] dictation software. It may contain incorrect words, spelling, and punctuation that were not noted in checking the note before signing. Subjective Subjective The patient was seen and examined at the bedside this morning. Events from the last 24 hours have been reviewed. The patient is currently maintaining appropriate oxygen saturations on AVAPS with an FiO2 requirement of 40%. The patient was able to be weaned to nasal cannula oxygen throughout the day yesterday. He has remained compliant with the use of noninvasive positive pressure ventilatory support on a nightly basis. No overnight issues were identified by the nursing staff. He is currently documented to be overall net - 2.7 L for the hospitalization. The patient completed his treatment course of remdesivir and remains on prophylactic Lovenox, Decadron and baricitinib. Liver and renal function are stable. Objective Data Objective Data The patient's most recent lab work, culture data and imaging studies have all been personally reviewed. Rapid coronavirus antigen testing was positive on July 02. Strep and urine Legionella antigens were negative. Sputum culture has not demonstrated any growth to date. Vital Signs: Vital Signs Temp Pulse Resp BP Pulse Ox 98.3 F 48 L 22 H 123/75 H 94 07/08/21 04:00 07/08/21 05:12 07/08/21 05:12 07/08/21 04:00 07/08/21 05:12 Oxygen Flow Rate (L/min) 12 Oxygen Delivery Method Bi-pap Weight: 153.5 kg Body Mass Index (BMI) 51.7 Intake & Output: Intake and Output for Last 24 Hours 07/06/21 07/07/21 07/08/21 23:59 23:59 23:59 Intake Total 250 / 350 200 / 200 0 / 0 Output Total 750 / 1150 1550 / 1550 400 / 400 Balance -500 / -800 -1350 / -1350 -400 / -400 Medical Nutrition Assessment Dietitian: Malnutrition Criteria Met Start: 07/03/21 11:47 Freq: Status: Active Protocol: Document 07/06/21 10:23 RMA (Rec: 07/06/21 10:23 RMA [id number]) Nutrition Malnutrition Evidence of Malnutrition Exists Yes Malnutrition (severe): Acute Illness/Injury Evidenced By Suboptimal Energy Intake ( Severe),Weight Loss (Severe) Clinical Problem Acute Disease or Injury Related Malnutrition Etiology severe, acute malnutrition r/t inadequate energy intake d/t acute illness Signs/Symptoms as evidenced by reported unintentional wt loss of 8. 26kg/5.1% <2 weeks; estimated PO intake meeting <50-75% of estimated energy needs >5 days Status Active Problem Recommendation Dietitian Recommendations/Changes Will continue Regular Diet for now--monitor need to restrict carbohydrates. Will adjust/decrease ONS to 8oz ensure clear BID w/ meals from TID previously. As PO intake improves, will d/ c ensure clear and change diet to CHO controlled as indicated. Lab / Micro Data Attestation: I reviewed the patient's lab results. Result Diagrams: 07/08/21 03:25 07/08/21 03:25 Labs: Laboratory Results - last 24 hr 07/08/21 03:25: WBC 9.2, RBC 4.74, Hgb 13.6, Hct 40.9, MCV 86.3, MCH 28.7, MCHC 33.3, RDW Std Deviation 40.2, RDW Coeff of Ying 12.7, Plt Count 241, MPV 10.0 07/08/21 03:25: Sodium 141, Potassium 3.7, Chloride 106, Carbon Dioxide 29.0, Anion Gap 6, BUN 19 H, Creatinine 0.79, Estim Creat Clear Calc 135.89, Est GFR (MDRD) Af Amer 151, Est GFR (MDRD) Non-Af 125, BUN/Creatinine Ratio 24.1 H, Glucose 111 H, Calcium 8.3 L, Total Bilirubin 0.30, AST 12 L, ALT 44, Alkaline Phosphatase 67, Total Protein 6.2 L, Albumin 2.6 L, Globulin 3.6, Albumin/Globulin Ratio 0.7 L Micro: Microbiology 07/02/21 15:10 Blood Culture (Wb) - Left Hand Blood Culture - Final No growth in 5 days. 07/02/21 14:29 Blood Culture (Wb) - Right Hand Blood Culture - Final No growth in 5 days. 07/04/21 21:15 Interface Orders Gram Stain - Final 07/04/21 21:15 Interface Orders Respiratory Culture - Final 07/03/21 06:45 Sputum, Expectorated/Coughed Gram Stain - Final 07/03/21 06:45 Sputum, Expectorated/Coughed Respiratory Culture - Final 07/02/21 23:33 Urine, Clean Catch Urine Culture - Final Mixed Gram Positive Organisms 07/02/21 23:33 Urine, Clean Catch Legionella Antigen - Final 07/02/21 23:33 Urine, Clean Catch Streptococcus pneumoniae Antigen (M - Final 07/02/21 15:05 Nasal Secretion SARS-CoV-2 Antigen (Rapid) - Final SARS-CoV-2 (COVID 19) Physical Exam Const alert and oriented x3 General Appearance: cooperative Nutritional Appearance: morbidly obese HEENT normocephalic and head/scalp atraumatic Eyes PERRL, EOMs intact bilaterally and conjunctivae normal Neck supple General: trachea midline Chest inspection of chest normal Chest: symmetrical chest wall rise; Negative for crepitus Resp no retractions and no use of accessory muscles Auscultation: diminished lung sounds; Negative for rales, rhonchi or wheezes Cardio regular rate, regular rhythm, S1 normal heart sound and S2 normal heart sound GI normal to inspection, nondistended, normoactive bowel sounds, soft to palpation, non-tender and non-distended Extremity normal to inspection and no clubbing, cyanosis or edema Skin no rashes or lesions noted Neuro no focal motor deficits Sensorium / Orientation: awake and alert Psych cooperative and affect normal Charges/Coding Visit Charges Inpatient E&M: 47802 Subs Hosp L2
[2021-07-08] MEDS: Enoxaparin 40 MG/0.4 ML Syringe SC ×2 (09:32→21:32)
[2021-07-08] MEDS: dexAMETHasone 10 MG/ML Vial 6 MG IV (09:32)
[2021-07-08] MEDS: 0.9% Saline Lock 10 ML Syringe IV (09:32)
[2021-07-08] MEDS: CHLORHEXIDINE GLUC 2% CLOTH 1 EACH TOWELETTE TOPICAL (11:35)
--- NOTE | 2021-07-08 13:19 | PN.HOSP_ITS ---
Subjective Subjective Patient seen and examined. He looks much better today. He is down to 6 L of oxygen. He is coughing occasionally but feels much better. Review of symptoms otherwise negative. Objective Data Objective Data Vital Signs: Vital Signs Temp Pulse Resp BP Pulse Ox 97.7 F L 78 25 H 131/50 H 94 07/08/21 09:40 07/08/21 11:15 07/08/21 09:40 07/08/21 09:40 07/08/21 12:20 Oxygen Flow Rate (L/min) 6 Oxygen Delivery Method High Flow Weight: 338 lb 6.553 oz Body Mass Index (BMI) 51.7 Intake & Output: Intake and Output for Last 24 Hours 07/06/21 07/07/21 07/08/21 23:59 23:59 23:59 Intake Total 250 / 350 200 / 200 0 / 0 Output Total 750 / 1150 1550 / 1550 400 / 400 Balance -500 / -800 -1350 / -1350 -400 / -400 Medical Nutrition Assessment Dietitian: Malnutrition Criteria Met Start: 07/03/21 11:47 Freq: Status: Active Protocol: Document 07/06/21 10:23 RMA (Rec: 07/06/21 10:23 RMA [id number]) Nutrition Malnutrition Evidence of Malnutrition Exists Yes Malnutrition (severe): Acute Illness/Injury Evidenced By Suboptimal Energy Intake ( Severe),Weight Loss (Severe) Clinical Problem Acute Disease or Injury Related Malnutrition Etiology severe, acute malnutrition r/t inadequate energy intake d/t acute illness Signs/Symptoms as evidenced by reported unintentional wt loss of 8. 26kg/5.1% <2 weeks; estimated PO intake meeting <50-75% of estimated energy needs >5 days Status Active Problem Recommendation Dietitian Recommendations/Changes Will continue Regular Diet for now--monitor need to restrict carbohydrates. Will adjust/decrease ONS to 8oz ensure clear BID w/ meals from TID previously. As PO intake improves, will d/ c ensure clear and change diet to CHO controlled as indicated. Lab / Micro Data Result Diagrams: 07/08/21 03:25 07/08/21 03:25 Labs: Laboratory Results - last 24 hr 07/08/21 03:25: WBC 9.2, RBC 4.74, Hgb 13.6, Hct 40.9, MCV 86.3, MCH 28.7, MCHC 33.3, RDW Std Deviation 40.2, RDW Coeff of Iyng 12.7, Plt Count 241, MPV 10.0 07/08/21 03:25: Sodium 141, Potassium 3.7, Chloride 106, Carbon Dioxide 29.0, Anion Gap 6, BUN 19 H, Creatinine 0.79, Estim Creat Clear Calc 135.89, Est GFR (MDRD) Af Amer 151, Est GFR (MDRD) Non-Af 125, BUN/Creatinine Ratio 24.1 H, Glucose 111 H, Calcium 8.3 L, Total Bilirubin 0.30, AST 12 L, ALT 44, Alkaline Phosphatase 67, Total Protein 6.2 L, Albumin 2.6 L, Globulin 3.6, Albumin/Globulin Ratio 0.7 L Micro: Microbiology 07/02/21 15:10 Blood Culture (Wb) - Left Hand Blood Culture - Final No growth in 5 days. 07/02/21 14:29 Blood Culture (Wb) - Right Hand Blood Culture - Final No growth in 5 days. 07/04/21 21:15 Interface Orders Gram Stain - Final 07/04/21 21:15 Interface Orders Respiratory Culture - Final 07/03/21 06:45 Sputum, Expectorated/Coughed Gram Stain - Final 07/03/21 06:45 Sputum, Expectorated/Coughed Respiratory Culture - Final 07/02/21 23:33 Urine, Clean Catch Urine Culture - Final Mixed Gram Positive Organisms 07/02/21 23:33 Urine, Clean Catch Legionella Antigen - Final 07/02/21 23:33 Urine, Clean Catch Streptococcus pneumoniae Antigen (M - Final 07/02/21 15:05 Nasal Secretion SARS-CoV-2 Antigen (Rapid) - Final SARS-CoV-2 (COVID 19) Physical Exam Const alert, oriented x3 and no apparent distress Constitutional Narrative: Super morbid obesity General Appearance: cooperative Exam Limitations: no limitations Nutritional Appearance: morbidly obese HEENT normocephalic, head/scalp atraumatic, moist oral mucous membranes, oropharynx normal and dentition normal Eyes PERRL, EOMs intact bilaterally and conjunctivae normal Neck no lymphadenopathy Resp normal respiratory effort, no retractions, no use of accessory muscles and clear to auscultation bilaterally Resp Narrative: diminished breath sounds bibasally, no wheezes or crackles. On 6L of oxygen Auscultation: Negative for crackles, rales, rhonchi or wheezes Cardio regular rate, regular rhythm, S1 normal heart sound, S2 normal heart sound, no murmurs, no rub, no gallops, no clicks and no JVD GI normal to inspection, nondistended, normoactive bowel sounds, soft to palpation, non-tender and non-distended Extremity normal to inspection, full ROM and no clubbing, cyanosis or edema Peripheral Pulses: Yes pulses 2+ throughout Skin no rashes or lesions noted Neuro oriented x3, CN's II-XII intact bilaterally, moves all extremities and no focal motor deficits Sensorium / Orientation: awake and alert Speech: speech normal Psych affect normal Assessment & Plan Assessment/Plan (1) Acute respiratory failure with hypoxia: (2) COVID-19: PLAN: #Acute hypoxic respiratory failure due to covid 19 pneumonia * Patient is unvaccinated. To be in isolation till 07/13/2021. * On remdesivir and Decadron. Also on baricitinib. * now weaned down to 6L of oxygen by nasal canula * Incentive spirometer. Breathing treatments medical dilators. * ID and pulmonology on board. * Diurese as needed to maintain euvolemic status. * #Hyperglycemia: * Thought to be due to steroids. A1c was only 5.7. Patient is not diabetic. Insulin sliding scale. Accuchecks ACHS. #Asthma: Not in exacerbation. Breathing treatments with bronchodilators. #Probable MELONY and Obesity hypoventilation syndrome: * will need follow-up with pulmonology on outpatient basis for sleep studies * #Super morbid obesity: Counseled on DASH diet and exercise DVT prophylaxis: Lovenox 40 mg twice daily CODE STATUS: Full code Disposition; transfer out of ICU to med surg today. Charges/Coding Visit Charges Inpatient E&M: 74950 Subs Hosp L2
--- NOTE | 2021-07-08 14:49 | NURSING ---
report called to [facility] for transfer from ICU
[2021-07-09] VITALS (8 sets, daily range): BP systolic 110–136; BP diastolic 72–73; PULSE 47–83; RESP 12–23; TEMP 36.8; O2SAT 3–95
[2021-07-09] MEDS: 0.9% Saline Lock 10 ML Syringe IV ×2 (03:53→09:05)
[2021-07-09] MEDS: Enoxaparin 40 MG/0.4 ML Syringe SC (09:04)
[2021-07-09] MEDS: dexAMETHasone 10 MG/ML Vial 6 MG IV (09:05)
--- NOTE | 2021-07-09 11:50 | DS.PCM_ITS ---
Providers Date of Admission: 07/02/21 Primary Care Physician: Albertina Primary Care Phys Consultations 07/02/21 19:24 Consult: Infectious Disease Routine Consulting Provider: Sandeep Saenz Reason for Consult: Covid-19 EMERGENT Consult: No Notified: Yes Date Notified: 07/03/21 Time Notified: 04:43 Method of Notification: Answering Service Consult: Foot Piece Assembler / Pulmonary Medicine Routine Consulting Provider: Pulmonary Medicine grecia [place] Reason for Consult: Covid-19 EMERGENT Consult: No Notified: Yes Date Notified: 07/02/21 Time Notified: 17:20 Method of Notification: Text Reason For Visit: COVID 19, RESPIRATORY FAILURE Diagnosis Discharge Diagnosis (1) Acute respiratory failure with hypoxia: Status: Acute Code(s): J96.01 - Acute respiratory failure with hypoxia (2) COVID-19: Status: Acute Code(s): U07.1 - COVID-19 Medications at Discharge Home Medications NK 07/02/21 dexamethasone 6 mg PO DAILY #3 tab 07/09/21 Hospital Course Operations None Procedures None Summary of Care Provided Minutes Spent on Discharge: 45 Hospital Course: Patient is a 25 y/o male with a PMh as outlined who was ad mitted via the ED on 07/02/2020 with a complaint of shortness of breath and cough which was productive of yellowish sputum. He was saturating at 87% on room air in the ED. He tested positive for covid. He was unvaccinated. He was admitted and managed for acute hypoxic respiratory failure due to COVID [address] of the chest was negative for PE and showed bilateral pneumonia. He was initially admitted to the ICU and was requiring Airvo with bipap intermittently, usually at night. He was gradually weaned off of AIrVO and BIPAP onto oxygen by nasal canula. Because in the hospital he was given remdesivir and Decadron. Patient improved and did much better. He had walking pulse ox which showed that he required 2L of oxygen at rest and 3L with exertion. He was discharged hme on 07.09.2020, and is to follow up with his PCP in 1-2 weeks. He is to remain in self isolation for 20 days from start of his symptoms. Patient seen and examined prior to discharge. He had no active complaints and felt well. Review of systems was otherwise negative. Labs and vitals reviewed. Home meds reviewed and reconciled. Physical Exam Const alert, oriented x3 and no apparent distress Constitutional Narrative: Super morbid obesity General Appearance: cooperative Exam Limitations: no limitations Nutritional Appearance: morbidly obese HEENT normocephalic, head/scalp atraumatic, moist oral mucous membranes, oropharynx normal and dentition normal Eyes PERRL, EOMs intact bilaterally and conjunctivae normal Neck no lymphadenopathy Resp normal respiratory effort, no retractions, no use of accessory muscles and clear to auscultation bilaterally Resp Narrative: diminished breath sounds bibasally, no wheezes or crackles. On 2L of oxygen Auscultation: Negative for crackles, rales, rhonchi or wheezes Cardio regular rate, regular rhythm, S1 normal heart sound, S2 normal heart sound, no murmurs, no rub, no gallops, no clicks and no JVD GI normal to inspection, nondistended, normoactive bowel sounds, soft to palpation, non-tender and non-distended Extremity normal to inspection, full ROM and no clubbing, cyanosis or edema Skin no rashes or lesions noted Neuro oriented x3, CN's II-XII intact bilaterally, moves all extremities and no focal motor deficits Sensorium / Orientation: awake and alert Speech: speech normal Psych affect normal Medical Records Data Medical Nutrition Assessment Dietitian: Malnutrition Criteria Met Start: 07/03/21 11:47 Freq: Status: Active Protocol: Document 07/06/21 10:23 RMA (Rec: 07/06/21 10:23 RMA [id number]) Nutrition Malnutrition Evidence of Malnutrition Exists Yes Malnutrition (severe): Acute Illness/Injury Evidenced By Suboptimal Energy Intake ( Severe),Weight Loss (Severe) Clinical Problem Acute Disease or Injury Related Malnutrition Etiology severe, acute malnutrition r/t inadequate energy intake d/t acute illness Signs/Symptoms as evidenced by reported unintentional wt loss of 8. 26kg/5.1% <2 weeks; estimated PO intake meeting <50-75% of estimated energy needs >5 days Status Active Problem Recommendation Dietitian Recommendations/Changes Will continue Regular Diet for now--monitor need to restrict carbohydrates. Will adjust/decrease ONS to 8oz ensure clear BID w/ meals from TID previously. As PO intake improves, will d/ c ensure clear and change diet to CHO controlled as indicated. Weight / BMI Weight Weight: 339 lb 4.8 oz Body Mass Index (BMI) 51.7 ABG / Lab / Microbiology Data Result Diagrams: 07/08/21 03:25 07/08/21 03:25 Microbiology: Microbiology 07/02/21 15:10 Blood Culture (Wb) - Left Hand Blood Culture - Final No growth in 5 days. 07/02/21 14:29 Blood Culture (Wb) - Right Hand Blood Culture - Final No growth in 5 days. 07/04/21 21:15 Interface Orders Gram Stain - Final 07/04/21 21:15 Interface Orders Respiratory Culture - Final 07/03/21 06:45 Sputum, Expectorated/Coughed Gram Stain - Final 07/03/21 06:45 Sputum, Expectorated/Coughed Respiratory Culture - Final 07/02/21 23:33 Urine, Clean Catch Urine Culture - Final Mixed Gram Positive Organisms 07/02/21 23:33 Urine, Clean Catch Legionella Antigen - Final 07/02/21 23:33 Urine, Clean Catch Streptococcus pneumoniae Antigen (M - Final 07/02/21 15:05 Nasal Secretion SARS-CoV-2 Antigen (Rapid) - Final SARS-CoV-2 (COVID 19) D/C Instructions Discharge Diet: Low fat / Low cholesterol Discharge Activity: Return to Normal Activity Weight Bearing Status: Weight bearing as tolerated Call your doctor if you observe: Fever of 101 or Higher, Shortness of breath, Swelling in the ankles and Increased palpitations (irregular heartbeat) Meaningful Use Info Meaningful Use Diagnoses (Choose all that apply): None applicable Discharge Plan Admission Admit Date/Time: 07/02/21 17:17 Primary Reason for Your Visit: acute hypoxic respiratory failure due to covid Attending Provider: Petty James Primary Care Provider: Care Physician,Albertina Primary Consulting Providers: Sandeep Saenz ; Ren Swanson ; Pasha Zaman ; Regina Davis CUSTOMER PROGRAM MANAGER Instructions Patient Instructions: Coronavirus Disease 2019 (COVID-19): Overview, Coronavirus Disease 2019 (COVID-19): Caring for Yourself or Others Additional Instructions / Restrictions: use 2-3L of oxygen for shortness of breath as needed. [place] in self isolation till Jul 13, 2021 Discharge Orders/Prescriptions Prescriptions: New dexamethasone 6 mg tablet 6 mg PO DAILY Qty: 3 RF: 0 No Action NK RF: 0 Referrals / Follow Up: Care Physician,No Primary [Primary Care Provider] - Within 2 Weeks Disposition Disposition (needs filled in before D/C Order can be placed): Home, Self Care Charges/Coding Visit Charges Inpatient E&M: 22610 Disch Hosp
--- NOTE | 2021-07-09 11:57 | CASEMGMT ---
DEVON CANO called patient in room to discuss home oxygen needs at discharge. Patient has no preference and after reviewing DME agencies with patient, agreeable to [employer]. DEVON CANO received script for home oxygen and faxed referral to [facility]. Patient provided [employer] portable tank and floor nurse updated. Patient states family will be picking him up at 1300. DEVON CANO call Maria at [facility] and notified of home oxygen referral and estimated time of discharge.
--- NOTE | 2021-07-09 13:24 | CASEMGMT ---
DEVON CANO updated by Josr at [facility] that they are unable to fill prescription for home oxygen and that the referral was forwarded to [facility]. Per Maria patient and discharge with [facility] tank and will arrange to pickup later as not to delay patient's discharge. DEVON CANO calling [facility] DME at [phone] to check on the status of referral. DEVON CANO updated patient.
== END 2021-07-09 13:39 | disposition home or self-care (01) | DRG 177 ==
LOC: ED 13:57 → MS3 18:03 → ICU 07-06 07:21 → MS3 07-09 11:38
PROVIDERS: Internal Medicine; Internal Medicine Critical Care Medicine; Internal Medicine Infectious Disease; Emergency Provider Student in an Organized Health Care Education/Training Program; Visit Provider Student in an Organized Health Care Education/Training Program
DX: U07.1 COVID-19 (principal); J12.82 Pneumonia due to coronavirus disease 2019; J96.01 Acute respiratory failure with hypoxia; E43 Unspecified severe protein-calorie malnutrition; Z68.43 Body mass index [BMI] 50.0-59.9, adult; E66.2 Morbid (severe) obesity with alveolar hypoventilation; J45.909 Unspecified asthma, uncomplicated; R73.9 Hyperglycemia, unspecified
CPT/HCPCS: 36415; 36569; 71045; 71275; 80053; 81001; 82962; 83036; 83605; 84484; 85025; 85027; 85610; 85730; 86140; 87040; 87070; 87086; 87088; 87205; 87426; 87449; 93005; 94003; 94640; 94660; 94667; 94668; 94762; 99251; 99285; J7050; Q9967; A4216; G0463; J0248; J1940; J2405

== ENCOUNTER 2021-08-10 08:05 | Outpatient (CLI) | payer OTHER, SELFPAY ==
--- NOTE | 2021-08-10 10:30 | PFTCOMP_ITS ---
COMPLETE PULMONARY FUNCTION TEST INTERPRETATION Brief HPI: Patient is a 26 year old male, currently under the care of Regina Davis, who presents to [facility] for complete pulmonary function tests secondary to diagnosis of status post COVID pneumonia. Respiratory therapist reports good effort, but had significant difficulty with exhalation, likely underestimating FVC. Interpretation: Forced expiration spirometry shows no large airways obstructive ventilatory defect with an FEV1 of 69% predicted. There is no significant bronchodilator response by strict ATS criteria. Spirograms are of poor quality and did not plateau, likely underestimating FVC. The respiratory flow volume loop shows a normal pattern. Lung volumes by body plethysmography show a decreased total lung capacity at 4.35 L, 68% predicted. All other lung volumes are reduced symmetrically. Diffusion capacity by carbon monoxide is decreased at 57% predicted. The airway resistance is normal. No previous pulmonary function tests were available for review. Impression: Moderate restrictive ventilatory defect with a symmetric reduction diffusing capacity
== END 2021-08-10 23:59 | disposition home or self-care (01) ==
LOC: PSN 08:07
PROVIDERS: Referring Provider Nurse Practitioner Acute Care; Visit Provider Nurse Practitioner Acute Care
DX: U07.1 COVID-19 (principal); J96.01 Acute respiratory failure with hypoxia
CPT/HCPCS: 94060; 94726; 94729

== ENCOUNTER 2021-08-31 12:21 | Outpatient (CLI) | payer OTHER, SELFPAY ==
[2021-08-31 12:49] VITALS: PULSE 104; PULSE 105; PULSE 106; PULSE 67; PULSE 70; PULSE 90; PULSE 93; O2SAT 91; O2SAT 92; O2SAT 93; O2SAT 94; O2SAT 96
--- NOTE | 2021-08-31 13:40 | PCM.PSN.6M ---
PSN 6 Minute Walk Test 6 Minute Walk Test 6 Minute Walk Test: 6 Minute Walk Test PSN:6-Minute Walk Test Start: 08/31/21 12:49 Freq: Status: Active Protocol: [id number].6MINW Document 08/31/21 12:49 KOLTON (Rec: 08/31/21 12:52 KOLTON [id number]) 6 Minute Walk Test Date Performed 08/31/21 Time Performed 12:30 Height 5 ft 8 in Weight: 156.036 kg Weight in Pounds 344.[address]: Ren Swanson Assistive device used: None Pre-test Oxygen Delivery Method Room Air Pulse Ox (%) 96 Pulse Rate (60-100 beats/min) 67 Dyspnea Henry Scale (0-10) 0 Exertion Henry Scale (6-20) 6 1st minute Oxygen Delivery Method Room Air Pulse Ox (%) 94 Pulse Rate (60-100 beats/min) 90 2nd minute Oxygen Delivery Method Room Air Pulse Ox (%) 92 Pulse Rate (60-100 beats/min) 93 3rd minute Oxygen Delivery Method Room Air Pulse Ox (%) 91 Pulse Rate (60-100 beats/min) 104 H 4th minute Oxygen Delivery Method Room Air Pulse Ox (%) 93 Pulse Rate (60-100 beats/min) 106 H 5th minute Oxygen Delivery Method Room Air Pulse Ox (%) 91 Pulse Rate (60-100 beats/min) 106 H 6th minute Oxygen Delivery Method Room Air Pulse Ox (%) 92 Pulse Rate (60-100 beats/min) 105 H Dyspnea Henry Scale (0-10) 2 Exertion Henry Scale (6-20) 11 Post-test Oxygen Delivery Method Room Air Pulse Ox (%) 96 Pulse Rate (60-100 beats/min) 70 Full Laps Walked 17 Partial Lap, Number of Tiles Walked 10 Total Distance Walked (ft) 1013 Interpretation Interpretation: The patient ambulated 1013 feet over the course of 6 minutes beginning on room air without assistive devices. Pretesting oxygen saturation was noted to be 96% on room air. With ambulation, the yasmin oxygen saturation was 91%. This represents a significant exertional oxygen desaturation. Recommendations Recommendations: There is no indication for the use of supplemental oxygen at this time. However, close interval follow-up is recommended, given the degree of oxygen desaturation noted during this study.
== END 2021-08-31 23:59 | disposition home or self-care (01) ==
LOC: PSN 12:22
PROVIDERS: Referring Provider Nurse Practitioner Acute Care; Visit Provider Nurse Practitioner Acute Care
DX: J96.01 Acute respiratory failure with hypoxia (principal)
CPT/HCPCS: 94618

== ENCOUNTER → 2022-02-04 | Outpatient (CLI) | payer OTHER, SELFPAY ==
--- NOTE | 2022-02-04 13:41 | ECHOD_ITS ---
Reason For Study: DYSPNEA Procedure This was a 2D Doppler, Color Flow transthoracic echocardiogram. Exam performed in department. Left Ventricle Normal LV size. The estimated ejection fraction is 55 %. No evidence for diastolic dysfunction. No regional wall motion abnormalities noted. Right Ventricle Normal RV size. Normal systolic function. Atria Normal left atrium. Normal right atrium. No doppler evidence for ASD. Mitral Valve There is no mitral valve stenosis. Trivial mitral valve insufficiency. Tricuspid Valve There is no tricuspid stenosis. Unable to estimate RV systolic pressure due to insufficient tricuspid regurgitant envelope. Aortic Valve Trisinus/trileaflet aortic valve. There is no aortic stenosis. No aortic valve insufficiency. Pulmonic Valve There is no pulmonic valvular stenosis. No pulmonic valve insufficiency. Great Vessels Normal aortic root. Pericardium/Pleural No pericardial effusion. MMode/2D Measurements & Calculations LVIDd: 5.3 cm IVSd: 0.59 cm Ao root diam: 2.9 cm LVIDs: 3.4 cm LVPWd: 0.83 cm FS: 36.1 % LAV(MOD-sp4): 42.2 ml LVAd ap4: 41.3 cm2 SV(MOD-sp4): 93.2 ml LVLd ap4: 8.7 cm EDV(MOD-sp4): 157.3 ml EDV(sp4-el): 165.8 ml LVAs ap4: 22.7 cm2 LVLs ap4: 6.8 cm ESV(MOD-sp4): 64.1 ml ESV(sp4-el): 64.1 ml EF(MOD-sp4): 59.3 % EF(sp4-el): 61.3 % SV(sp4-el): 101.6 ml LA A4 area: 16.6 cm2 LA dimension(2D): 4.2 cm RA A4 area: 17.0 cm2 Time Measurements MV dec time: 0.16 sec Doppler Measurements & Calculations MV E max fransisco: 98.3 cm/sec Lat Peak E' Fransisco: 22.3 cm/sec Med Peak E' Fransisco: 10.8 cm/sec MV A max fransisco: 29.2 cm/sec E/E' lat: 4.4 E/E' med: 9.1 MV E/A: 3.4 MV V2 max: 113.8 cm/sec Ao V2 max: 99.8 cm/sec MV max P.2 mmHg MV dec slope: 640.4 cm/sec2 Ao max P.0 mmHg MV V2 mean: 49.8 cm/sec Ao V2 mean: 69.0 cm/sec MV mean P.3 mmHg Ao mean P.2 mmHg MV V2 VTI: 35.8 cm Ao V2 VTI: 23.1 cm LV V1 max: 101.7 cm/sec PA V2 max: 87.1 cm/sec LV V1 max P.1 mmHg PA V2 mean: 61.8 cm/sec LV V1 mean P.2 mmHg LV V1 mean: 69.7 cm/sec LV V1 VTI: 24.8 cm ECHO/Echo Complete Interpretation Summary The estimated ejection fraction is 55 %. No evidence for diastolic dysfunction. Trivial mitral valve insufficiency. Ordering Physician: Regina Davis Referring Physician: Regina Davis Performed By: Kaia Yanes RCS
== END | disposition home or self-care (01) ==
LOC: CVS 13:41
PROVIDERS: PCP Family Medicine; Referring Provider Nurse Practitioner Acute Care; Visit Provider Nurse Practitioner Acute Care
DX: R06.02 Shortness of breath (principal)
CPT/HCPCS: 93306